=== PATIENT | male | born 1980 | race African-American/Black ===

== ENCOUNTER 2020-08-17 12:28 | Inpatient (IN) ==
[2020-08-17] MEDS ORDERED: SODIUM CHLORIDE 0.9% 1000ML 1,000 ML IV ONE (12:53)
[2020-08-17] MEDS ORDERED: ONDANSETRON INJ 2 MG/ML 2 ML VIAL IV STA (13:02)
--- NOTE | 2020-08-17 13:02 | Emergency Department Note ---
Impression & Plan BRBPR (bright red blood per rectum), Gastritis, Vomiting ED Provider Note NAME: MO [id number] MOMO AGE: 39 SEX: M : 1980 ARRIVES VIA: Walk-In INFORMANT: Patient ED PROVIDER(S): John Siddiqi DO CHIEF COMPLAINT: Bright red blood per rectum and vomiting HPI: Patient is a 39-year-old male who presents the ER for bright red blood per rectum. This has been present for the past 3 months. He notes its bright red blood out and around the stool. Its not mixed in. He denies any dark tarry or black stools. He denies any blood thinners. He has no belly pain with the exception of the past 2 to 3 days where he said pain in the right lower quadrant. He has had vomiting since this past Thursday. Anytime he eats or drinks anything he vomits it back up. He denies any blood in the vomit. Denies any dysuria urgency or frequency. No trauma. No other exacerbating or remitting factors. Denies any dizziness or lightheadedness. ROS: See above HPI for pertinent positives & negatives. A total of 10 systems reviewed and were otherwise negative. PAST MEDICAL HISTORY:See Below PAST SURGICAL HISTORY:See Below FAMILY HISTORY:See Below SOCIAL HISTORY:See Below HOME MEDICATIONS:See Below ALLERGIES:See Below VITALS:See Below PHYSICAL EXAMINATION: GENERAL: Sitting up in bed, alert, well appearing, well nourished, no distress, non-toxic EYE EXAM: normal conjunctiva. OROPHARYNX: Mask in place LUNGS: Clear to auscultation. Normal chest wall mechanics HEART: no murmurs, S1 normal and S2 normal ABDOMEN: abdomen soft, non-tender, normo-active bowel sounds, no masses, no rebound or guarding. RECTAL: Faintly heme positive. No stool. No external hemorrhoids UPPER EXTREMITIES: upper extremities are grossly normal. LOWER EXTREMITIES: No pitting edema. NEURO EXAM: Normal sensorium, cranial nerves II-XII grossly intact, normal speech, no gross weakness of arms, no gross weakness of legs. MEDICAL DECISION MAKING: Patient is a 39-year-old male who presents ER for bright red blood per rectum which has been present for the past 3 months. This does appear to be consistent with a hemorrhoidal bleed based on history. IV was established blood work was obtained. Labs show mild leukopenia 4000. No significant anemia. Platelets were normal. BMP with LFTs bilirubin and lipase was unremarkable. UA was clean. CT abdomen pelvis shows fluid-filled distal esophagus with a duodenitis. Did favor at the GI bleed is likely hemorrhoidal in nature and hemoglobin is stable. Vitals are stable. With the vomiting did have the images reviewed by Teresa from [facility] gastroenterology as the patient is scheduled with for colonoscopy as an outpatient already. They recommend discussed with Dr. Dougherty as they prefer if they were on this weekend they would scope him. Discussed with Dr. Dougherty and he will evaluate the patient tomorrow to determine further care. Triage Nursing notes reviewed. Limited review of prior medical records performed Vital Signs: reviewed and remarkable for HTN Differential diagnosis: Differential diagnoses includes but is not limited to gastritis, peptic ulcer disease, GERD, gallbladder disease, pancreatitis, small bowel obstruction, acute coronary syndrome, pericarditis, ischemic bowel, irritable bowel disease, irritable bowel syndrome, appendicitis, diverticulitis, malignancy, hernia, urinary tract infection, torsion, perforation, trauma, infectious. ER treatment provided: See below Diagnostics interpreted by me: ECG: none Cardiac Monitoring: An order was placed for continuous cardiac monitoring. The monitor shows a rate of 70 with sinus rhythm. Laboratory studies: As stated above and show below. Imaging studies: CT abdomen pelvis as discussed above Consultation(s): Discussed with Teresa from [facility] GI as stated above Discussed with Dr. Dougherty as stated above Discussed with the hospitalist as stated above Procedures: none PDMP:reviewed and no issues Critical Care: None Past Med/Surg History Social History Smoking Status: Never smoker Feels Safe at Home: Yes Allergies Allergies Allergy/AdvReac Type Severity Reaction Status Date / Time No Known Allergies Allergy Unknown Verified 08/17/20 13:48 chicken derived AdvReac Unknown NAUSEA Verified 08/17/20 13:48 Home Meds Home Medications Medication Instructions Recorded Confirmed insulin glargine [Lantus U-100 23 unit SUBCUT DAILY 08/17/20 08/17/20 Insulin] insulin regular human [Novolin R 0 unit SUBCUT UD 08/17/20 08/17/20 Regular U-100 Insuln] lisinopril 2.5 mg PO DAILY 08/17/20 08/17/20 metformin 1,000 mg PO BID 08/17/20 08/17/20 omeprazole 20 mg PO DAILY 08/17/20 08/17/20 Results & Data (ED) Vital Signs Vital Signs - 24 hr 08/17/20 12:41 08/17/20 13:12 08/17/20 13:22 Temperature 36.8 C Temperature Source Temporal Artery Scan Pulse Rate 62 57 L Pulse Rate [Apical] 73 Pulse Rhythm Regular Pulse Rhythm [Apical] Regular Pulse Strength [Apical] Normal Respiratory Rate 20 18 18 Respiratory Effort / Characteristics Non-Labored Spontaneous Non-Labored Spontaneous Respiratory Depth Normal Normal Respiratory Pattern Regular Blood Pressure 179/98 H Blood Pressure [Right Arm] 172/90 H Blood Pressure Mean 125 Blood Pressure Mean [Right Arm] 117 Blood Pressure Position Sitting Blood Pressure Position [Right Arm] Sitting Pulse Oximetry 97 98 99 Oxygen Delivery Method Room Air Room Air Room Air Sepsis Recent Fever Within 48 Hours No Sepsis New/Unexplained Change in Mental Status N/A Sepsis Action Taken by Nursing No Action Required 08/17/20 14:00 08/17/20 15:02 08/17/20 16:01 Temperature Temperature Source Pulse Rate Pulse Rate [Apical] 55 L 57 L 65 Pulse Rhythm Pulse Rhythm [Apical] Regular Regular Pulse Strength [Apical] Normal Normal Respiratory Rate 16 18 20 Respiratory Effort / Characteristics Non-Labored Spontaneous Non-Labored Spontaneous Respiratory Depth Normal Normal Respiratory Pattern Regular Regular Blood Pressure Blood Pressure [Right Arm] 135/87 143/86 H 174/103 H Blood Pressure Mean Blood Pressure Mean [Right Arm] 103 105 126 Blood Pressure Position Blood Pressure Position [Right Arm] Sitting Sitting Pulse Oximetry 98 96 99 Oxygen Delivery Method Room Air Room Air Sepsis Recent Fever Within 48 Hours Sepsis New/Unexplained Change in Mental Status Sepsis Action Taken by Nursing 08/17/20 17:07 Temperature Temperature Source Pulse Rate Pulse Rate [Apical] 66 Pulse Rhythm Pulse Rhythm [Apical] Pulse Strength [Apical] Respiratory Rate 18 Respiratory Effort / Characteristics Respiratory Depth Respiratory Pattern Blood Pressure Blood Pressure [Right Arm] 147/76 H Blood Pressure Mean Blood Pressure Mean [Right Arm] 99 Blood Pressure Position Blood Pressure Position [Right Arm] Pulse Oximetry 99 Oxygen Delivery Method Room Air Sepsis Recent Fever Within 48 Hours Sepsis New/Unexplained Change in Mental Status Sepsis Action Taken by Nursing Laboratory Data Result diagrams: 08/17/20 13:14 08/17/20 13:13 Lab Results 08/17/20 08/17/20 08/17/20 Range/Units 13:13 13:14 13:24 WBC 4.47 L (4.8-10.8) K/uL RBC 5.11 (4.7-6.1) M/uL Hgb 15.0 (14.0-18.0) g/dL Hct 43.1 (42-52) % MCV 84.3 (80-100) fL MCH 29.4 (25-34) pg MCHC 34.8 (32-36) g/dL RDW Std Deviation 40.3 (36.4-46.3) fL RDW Coeff of Jossy 13.1 (11.5-14.5) % Plt Count 332 (130-400) K/uL MPV 9.9 (7.4-10.4) fL Immature Gran % (Auto) 0.2 % Neut % (Auto) 34.5 % Lymph % (Auto) 57.0 % Keith % (Auto) 4.3 % Eos % (Auto) 3.1 % Baso % (Auto) 0.9 % Neut # (Auto) 1.54 (1.4-6.5) K/uL Lymph # (Auto) 2.55 (1.2-3.4) K/uL Keith # (Auto) 0.19 (0.11-0.59) K/uL Eos # (Auto) 0.14 (0-0.5) K/uL Baso # (Auto) 0.04 (0-0.2) K/uL Immature Gran # (Auto) 0.01 (0.00-0.02) K/uL Sodium 137 (136-145) mmol/L Potassium 3.8 (3.5-5.1) mmol/L Chloride 103 (98-107) mmol/L Carbon Dioxide 27 (21-32) mmol/L Anion Gap 7.0 (3-11) BUN 11 (7-18) mg/dl Creatinine 1.04 (0.6-1.4) mg/dl Est Cr Clr Drug Dosing 121.9 ml/min Est GFR ( Amer) 105.1 Est GFR (Non-Af Amer) 90.7 BUN/Creatinine Ratio 10.1 (10-20) Glucose 165 H (70-99) mg/dl Calcium 9.7 (8.5-10.1) mg/dl Total Bilirubin 0.7 (0.2-1) mg/dl AST 20 (15-37) U/L ALT 34 (12-78) U/L Alkaline Phosphatase 64 (45-117) U/L Total Protein 7.9 (6.4-8.2) gm/dl Albumin 4.2 (3.4-5.0) gm/dl Globulin 3.7 (2.5-4.0) gm/dl Albumin/Globulin Ratio 1.1 (0.9-2) Lipase 87 (73-393) U/L Urine Color Yellow Urine Appearance Clear (Clear) Urine pH 5.5 (4.5-7.5) Ur Specific [place] 1.037 H (1.000-1.030) Urine Protein 1+ H (Negative) Urine Glucose (UA) 3+ H (Negative) Urine Ketones Trace H (Negative) Urine Blood Negative (Negative) Urine Nitrite Negative (Negative) Urine Bilirubin Negative (Negative) Urine Urobilinogen Negative (Negative) Ur Leukocyte Esterase Negative (Negative) Urine WBC (Auto) 1-5 (0-5) /hpf Urine RBC (Auto) 0-4 (0-4) /hpf U Hyaline Cast (Auto) 1-5 (0-5) /lpf U Epithel Cells (Auto) 0-5 (0-5) /lpf Urine Bacteria (Auto) Negative (Negative) Administered Medications Discontinued Medications Al Hydrox/Mg Hydrox/Simethicone (Gi Cocktail Ed Use) 1 dose PO ONE ONE Stop: 08/17/20 16:32 Last Admin: 08/17/20 17:06 Dose: 1 dose Documented by: [id number] Sodium Chloride (Nss 1000ml) 1,000 mls @ 999 mls/hr IV .Q1H1M ONE Stop: 08/17/20 13:53 Last Infusion: 08/17/20 14:30 Dose: 0 mls/hr Documented by: [id number] Admin: 08/17/20 13:29 Dose: 999 mls/hr Documented by: [id number] Ioversol (Ioversol 100ml) 94 ml IV ONCE ONE Stop: 08/17/20 15:50 Last Admin: 08/17/20 15:49 Dose: 94 ml Documented by: [id number] Ondansetron HCl (Ondansetron Inj 2 Mg/Ml 2 Ml Vial) 4 mg IV NOW STA Stop: 08/17/20 13:03 Last Admin: 08/17/20 13:29 Dose: Not Given Documented by: [id number] Discharge Plan Visit Data Chief Complaint: GI Bleed Stated Complaint: GI BLEED ED Provider: John Siddiqi Discharge Problem: BRBPR (bright red blood per rectum), Gastritis, Vomiting Forms Stand Alone Forms: My [facility] Prescriptions Prescriptions: No Action Lantus U-100 Insulin 100 unit/mL Solution 23 unit SUBCUT DAILY RF: 0 metformin 1,000 mg Tablet 1,000 mg PO BID RF: 0 Novolin R Regular U-100 Insuln 100 unit/mL Solution 0 unit SUBCUT UD RF: 0 omeprazole 20 mg Capsule,Delayed Release(Dr/Ec) 20 mg PO DAILY RF: 0 lisinopril 2.5 mg Tablet 2.5 mg PO DAILY RF: 0 Discharge Problem: Gastritis Qualifiers: Gastritis type: unspecified gastritis Chronicity: unspecified Gastritis bleeding: presence of bleeding unspecified Qualified Code(s): K29.70 - Gastritis, unspecified, without bleeding Vomiting Qualifiers: Vomiting type: unspecified Vomiting Intractability: unspecified Nausea presence: unspecified Qualified Code(s): R11.10 - Vomiting, unspecified
[2020-08-17 13:37] LABS: Appearance Urine Clear (Clear); Bacteria Urine Automated Negative (Negative); Bilirubin Urine Negative (Negative); Blood Urine Negative (Negative); Color Urine Yellow; Epithelial Cell Urine Auto 0-5 /lpf (0-5); Glucose Urine UA 3+ (Negative); Ketones Urine Trace (Negative); Leukocyte Esterase Urine Negative (Negative); Nitrite Urine Negative (Negative); Protein Urine 1+ (Negative); RBC Urine Automated 0-4 /hpf (0-4); Specific Gravity Urine 1.037 (1.000-1.030); Urobilinogen Urine Negative (Negative); pH Urine 5.5 (4.5-7.5)
[2020-08-17 13:41] LABS: Albumin Level 4.2 gm/dl (3.4-5.0); BUN Creatinine Ratio 10.1 (10-20); Calcium 9.7 mg/dl (8.5-10.1); Creatinine Clr Calc Pharmacy 121.9 ml/min; Est GFR (African American) 105.1; Est GFR (Non-African American) 90.7; Potassium 3.8 mmol/L (3.5-5.1)
[2020-08-17 13:43] LABS: Albumin Globulin Ratio 1.1 (0.9-2); Bilirubin,Total 0.7 mg/dl (0.2-1); Globulin 3.7 gm/dl (2.5-4.0); Total Protein 7.9 gm/dl (6.4-8.2)
[2020-08-17 14:15] LABS: Hematocrit (blood only) 43.1 % (42-52); Mean Corpuscular Hemoglobin 29.4 pg (25-34); Mean Corpuscular Hgb Conc 34.8 g/dL (32-36); Mean Corpuscular Volume 84.3 fL (80-100); Mean Platelet Volume 9.9 fL (7.4-10.4); Platelet Count 332 K/uL (130-400); RDW Coefficient of Variation 13.1 % (11.5-14.5); RDW Standard Deviation 40.3 fL (36.4-46.3); Red Blood Count 5.11 M/uL (4.7-6.1); White Blood Count 4.47 K/uL (4.8-10.8)
[2020-08-17 14:31] LABS: Basophils # (auto) 0.04 K/uL (0-0.2); Basophils % (auto) 0.9 %; Eosinophils # (auto) 0.14 K/uL (0-0.5); Eosinophils % (auto) 3.1 %; Immature Granulocytes # (auto) 0.01 K/uL (0.00-0.02); Immature Granulocytes % (auto) 0.2 %; Lymphocytes # (auto) 2.55 K/uL (1.2-3.4); Monocytes # (auto) 0.19 K/uL (0.11-0.59); Monocytes % (auto) 4.3 %; Neutrophils # (auto) 1.54 K/uL (1.4-6.5); Neutrophils % (auto) 34.5 %
[2020-08-17] MEDS ORDERED: IOVERSOL 100ml IV ONE (15:49)
--- NOTE | 2020-08-17 16:06 | CT Scan Report ---
CT SCAN OF THE ABDOMEN AND PELVIS WITH IV CONTRAST CLINICAL HISTORY: Generalized abdominal pain. Nausea and vomiting. Hematochezia. COMPARISON STUDY: No priors. TECHNIQUE: Following the IV administration of 94 cc of Optiray 320, CT scan of the abdomen and pelvi s is performed from the lung bases to the proximal femora. Images are reviewed in the axial, sagittal , and coronal planes. IV contrast was administered without complication. A dose lowering technique wa s utilized adhering to the principles of ALARA. The examination is modestly degraded by motion artifa ct. CT DOSE: 1031.97 mGycm FINDINGS: Lung bases: The heart is normal in size and without pericardial effusion. The lung bases are clear. T here is a small hiatal hernia. Fluid fills the distal esophagus which appears thick walled. Liver: The contrast-enhanced liver is normal in size, contour, and attenuation. There is no intrahepa tic biliary ductal dilatation. The hepatic veins and portal veins are patent. Gallbladder: Unremarkable. Spleen: Normal in size and attenuation. A 10 mm splenic hypodensity seen on image #50 is statisticall y of doubtful significance. Pancreas: Unremarkable. Adrenal glands: Unremarkable. Kidneys: The contrast enhanced kidneys are normal in size and without hydronephrosis. The kidneys enh ance symmetrically. Scattered subcentimeter cortical hypodensities likely represent cysts but are too small for definitive characterization. Abdominal vasculature: The abdominal aorta is normal in course and caliber. Bowel: There is no bowel obstruction. There is wall thickening and mild mucosal hyperemia involving t he distal duodenum and the jejunum. There is minimal surrounding infiltration. No pneumatosis intesti nalis or portal venous gas is seen. There is no interval fluid. Fecal retention is seen throughout th e colon. The appendix is well-visualized and normal. Peritoneum: There is no intraperitoneal free air or abdominal ascites. There is a fat-containing umbi lical hernia. Lymphadenopathy: None. Pelvic viscera: The bladder, prostate, and seminal vesicles are normal as imaged. There is a small fa t-containing right inguinal hernia. Skeletal structures: No lytic or blastic lesions are seen. Degenerative change and sclerosis is noted in the sacroiliac joints. IMPRESSION: 1. There is mild wall thickening with mucosal hyperemia and minimal surrounding infiltration involvin g the distal duodenum and the jejunum. The appearance is consistent with a nonspecific duodenitis/jej unitis. 2. There is no pneumatosis intestinalis, portal venous gas, intraperitoneal free air, or abdominal as cites. 3. The distal esophagus is mildly distended and fluid-filled. There is mild esophageal wall thickenin g. Correlate clinically for evidence of esophagitis. 4. There is no bowel obstruction. 5. Additional findings as above. ACT 112: Negative or not required by law. Electronically signed by: Ruy Russell M.D. 08/17/2020 4:05 PM
[2020-08-17] MEDS ORDERED: GI COCKTAIL ED USE PO ONE (16:31)
[2020-08-17] MEDS ORDERED: PANTOprazole 40 MG in SYRINGE 0 ML IV ONE (17:16)
--- NOTE | 2020-08-17 17:58 | History & Physical Report ---
Date of Service August 17, 2020 Assessment & Plan (1) Vomiting: (2) Rectal bleeding: Pt is 39 y/o M with PMH DM, HTN presented to ER with c/o bright red rectal bleeding with BMs x 3 months. Past week c/o nausea and vomiting with eating. In ER afebrile, vitals stable No leukocytosis, H/H: 15/43, BUN: 11, Cr: 1.0 CT ABD/PELVIS:There is mild wall thickening with mucosal hyperemia and minimal surrounding infiltration involving the distal duodenum and the jejunum. The appearance is consistent with a nonspecific duodenitis/jejunitis. no pneumatosis intestinalis, portal venous gas, intraperitoneal free air, or abdominal ascites. The distal esophagus is mildly distended and fluid-filled. There is mild esophageal wall thickening. There is no bowel obstruction. In ER given 1L NSS, GI cocktail, Zofran, Protonix and reports improvement NPO IVF Protonix IV BID GI consult AM labs (3) Diabetes mellitus, type II: A1c in am Hold metformin, home insulin Basal bolus insulin per protocol (4) HTN (hypertension): Hold lisinopril and reassess in am DVT Prophylaxis SCDs Pt at [facility] Pt was seen and care coordinated with Dr Caldera. See addendum History of Present Illness Chief Complaint: Rectal bleeding Primary Care Provider: [facility] Pt is 39 y/o M with PMH DM, HTN presented to ER with c/o bright red rectal bleeding with BMs x 3 months. Past week c/o nausea and vomiting with eating. Didn't eat yesterday as was afraid would vomit. C/O upper and lower abdominal pressure today. Denies constipation, straining to have BM or painful BM's. Today felt light headed with standing. Denies fever/chills, diaphoresis, hematemesis, melena, ABDI, syncope, vision changes, neck pain, CP, SOB, orthopnea, palpitations, cough, sore throat, choking, otalgia, rhinorrhea, paresthesias, weakness, extremity weakness, extremity edema, rashes, urinary symptoms. Allergies Allergy/AdvReac Type Severity Reaction Status Date / Time No Known Allergies Allergy Unknown Verified 08/17/20 13:48 chicken derived AdvReac Unknown NAUSEA Verified 08/17/20 13:48 Home Medications Medication Instructions Recorded Confirmed Type insulin glargine [Lantus U-100 23 unit SUBCUT DAILY 08/17/20 08/17/20 History Insulin] insulin regular human [Novolin R 0 unit SUBCUT UD 08/17/20 08/17/20 History Regular U-100 Insuln] lisinopril 2.5 mg PO DAILY 08/17/20 08/17/20 History metformin 1,000 mg PO BID 08/17/20 08/17/20 History omeprazole 20 mg PO DAILY 08/17/20 08/17/20 History Past Med/Surg History Medical History Diabetes mellitus, type II HTN (hypertension) Surgical History H/O right knee surgery Family History Family/Other Colorectal cancer Aunt Grandfather (Maternal) Diabetes Mother Diabetes Social History Smoking Status: Never smoker Hx Alcohol Use: No Hx Substance Use: No Feels Safe at Home: Yes Review of Systems Review of Systems: All systems reviewed & are unremarkable except as noted in HPI & below Physical Exam Physical Exam: General: no distress, WDWN Head: normocephalic, atraumatic Eyes: PERRL, EOM's intact, conjunctiva non-injected, anicteric ENT: normal inspection external ears, nose, mucous membranes moist Neck: supple, trachea midline Lungs: clear, no respiratory distress, no wheezing/rhonchi/rales CV: RRR, no murmur, no pretibial edema Abd: normal BS, soft, mild tenderness to palpation epigastric without rebound or guarding Ext: no cyanosis, no calf tenderness Neuro: A&O x 3, no focal deficits noted, normal affect Skin: warm, dry Results & Data Results & Data ([place]) Vital Signs (Past 12 Hours) Vital Signs Temp Pulse Pulse Resp BP BP Pulse Ox 08/17/20 17:07 66 18 147/76 H 99 08/17/20 16:01 65 20 174/103 H 99 08/17/20 15:02 57 L 18 143/86 H 96 08/17/20 14:00 55 L 16 135/87 98 08/17/20 13:22 73 18 172/90 H 99 08/17/20 13:12 57 L 18 98 08/17/20 12:41 36.8 C 62 20 179/98 H 97 Laboratory Results Short CBC 08/17/20 Range/Units 13:14 WBC 4.47 L (4.8-10.8) K/uL Hgb 15.0 (14.0-18.0) g/dL Hct 43.1 (42-52) % Plt Count 332 (130-400) K/uL BMP 08/17/20 13:13 Sodium 137 Potassium 3.8 Chloride 103 Carbon Dioxide 27 BUN 11 Creatinine 1.04 Glucose 165 H Calcium 9.7 Liver Function 08/17/20 Range/Units 13:13 Total Bilirubin 0.7 (0.2-1) mg/dl AST 20 (15-37) U/L ALT 34 (12-78) U/L Alkaline Phosphatase 64 (45-117) U/L Albumin 4.2 (3.4-5.0) gm/dl Urine 08/17/20 Range/Units 13:24 Urine Color Yellow Urine Appearance Clear (Clear) Urine pH 5.5 (4.5-7.5) Ur Specific [place] 1.037 H (1.000-1.030) Urine Protein 1+ H (Negative) Urine Glucose (UA) 3+ H (Negative) Diagnostic Findings CT ABD/PELVIS: IMPRESSION: 1. There is mild wall thickening with mucosal hyperemia and minimal surrounding infiltration involving the distal duodenum and the jejunum. The appearance is consistent with a nonspecific duodenitis/jejunitis. 2. There is no pneumatosis intestinalis, portal venous gas, intraperitoneal free air, or abdominal ascites. 3. The distal esophagus is mildly distended and fluid-filled. There is mild esophageal wall thickening. Correlate clinically for evidence of esophagitis. 4. There is no bowel obstruction. 5. Additional findings as above. Code Status & VTE Plan VTE Prophylaxis Plan VTE Prophylaxis will be ordered: Yes Supervising Physician Co-Signing Physician Notes Attending Addendum: care coordinated with INGRID Moser please refer to her notes for full details, I agree with her notes patient seen and examined, records reviewed by myself as well on exam, patient seen resting in bed, comfortable not in distress states he has mild lower quadrant pain, improving reports nausea/vomiting with PO intake x 2 days reports rectal bleeding, non painful, x few weeks no other symptoms VS noted and reviewed oriented x 3, not in distress, speaks in sentences with no effort nor accessory muscle use normal rate, regular rhythm, no murmurs clear breath sounds bilaterally non distended, soft, mild lower quadrant tenderness no bipedal edema, erythema, warmth no neuro deficits WBC 4.4 Hg 15 Crea 1.04 ASSESSMENT AND PLAN ABDOMINAL PAIN, NAUSEA/VOMITING LIKELY SECONDARY TO ESOPHAGITIS, DUODENO/JEJUNITIS Protonix IV BID NPO IV fluids GI consulted DM 2 ISS other diagnoses and plan of care as per INGRID Davis notes Deep Caldera MD (1) Vomiting Nausea presence: unspecified Vomiting Intractability: unspecified Vomiting type: unspecified Qualified Code(s): R11.10 - Vomiting, unspecified
[2020-08-17] MEDS ORDERED: CARBOHYDRATES FOR HYPOGLYCEMIA PO PRN (21:29)
[2020-08-17] MEDS ORDERED: DEXTROSE 50% 50 ML SYRINGE IV PRN (21:29)
[2020-08-17] MEDS ORDERED: GLUCAGON FOR INJ 1 MG VIAL SQ PRN (21:29)
[2020-08-17] MEDS ORDERED: GLUCOSE 40% GEL 15 GM TUBE PO PRN (21:29)
[2020-08-17] MEDS ORDERED: GLUCOSE 10 TABS/TUBE PO PRN (21:29)
[2020-08-17] MEDS: SODIUM CHLORIDE 0.9% 1000ML 1,000 ML IV SCH (21:30)
[2020-08-17] MEDS: INSULIN GLARGINE SOLOSTAR 100 UNITS/ML 3 ML PEN SC SCH (21:30)
[2020-08-17] MEDS: INSULIN ASPART 100 UNITS/ML 3 ML PEN SC SCH (22:41)
[2020-08-17] MEDS: PANTOprazole 40 MG in SYRINGE 0 ML IV SCH (23:12)
[2020-08-17] MEDS: ONDANSETRON INJ 2 MG/ML 2 ML VIAL IV PRN (23:46)
[2020-08-17] MEDS ORDERED: traMADol HCL 50 MG TABLET PO PRN (23:48)
[2020-08-17] MEDS ORDERED: ACETAMINOPHEN 325 MG TAB PO PRN (23:48)
[2020-08-18] MEDS ORDERED: NITROGLYCERIN SL 0.4 MG/TAB TAB SL STA (00:11)
--- NOTE | 2020-08-18 00:15 | Communication Note ---
Date of Service: August 18, 2020 Notified by RN of left-sided chest pain complaints described as sharp. No other symptoms. Similar episode last month in long term as per patient. Chest pain relieved by nitroglycerin as per RN. PPE CHEST CTA, no anterior chest wall tenderness HEART bradycardic, no obvious murmur Chest x-ray as per my interpretation cardiomegaly EKG as per my interpretation : Rate 55, sinus bradycardia, normal axis, T wave abnormalities inferior leads, early repolarization anterolateral leads First troponin negative AP Chest pain relieved by nitroglycerin Abnormal EKG Possible ACS Aspirin per rectum for now (given UGIB) for CAD prevention until ACS ruled out Follow troponin TTE in a.m., Cardio consult Case discussed with Dr. Mims (owner/operator) after EKG images transmitted. No heart alert for now as per Dr. Mims. He recommends follow-up troponin draw now. Will relay to AM provider.
[2020-08-18 00:31] LABS: Partial Thromboplastin Ratio 1.1; Partial Thromboplastin Time 30.1 Seconds (21.0-31.0)
[2020-08-18 00:37] LABS: C Reactive Protein < 0.29 mg/dl (0-0.29); Troponin I < 0.015 ng/ml (0-0.045)
[2020-08-18] MEDS ORDERED: ASPIRIN 300 MG SUPP PR ONE (00:49)
[2020-08-18 05:10] LABS: Hematocrit (blood only) 39.4 % (42-52); Hemoglobin 13.6 g/dL (14.0-18.0); Mean Corpuscular Hemoglobin 29.3 pg (25-34); Mean Corpuscular Hgb Conc 34.5 g/dL (32-36); Mean Corpuscular Volume 84.9 fL (80-100); Mean Platelet Volume 9.7 fL (7.4-10.4); Platelet Count 314 K/uL (130-400); RDW Coefficient of Variation 13.1 % (11.5-14.5); RDW Standard Deviation 40.4 fL (36.4-46.3); Red Blood Count 4.64 M/uL (4.7-6.1); White Blood Count 4.65 K/uL (4.8-10.8)
[2020-08-18 05:38] LABS: Basophils # (auto) 0.03 K/uL (0-0.2); Basophils % (auto) 0.6 %; Eosinophils # (auto) 0.23 K/uL (0-0.5); Eosinophils % (auto) 4.9 %; Lymphocytes # (auto) 2.73 K/uL (1.2-3.4); Lymphocytes % (auto) 58.7 %; Monocytes # (auto) 0.27 K/uL (0.11-0.59); Monocytes % (auto) 5.8 %; Neutrophils # (auto) 1.39 K/uL (1.4-6.5); RBC Morphology Unremarkable
[2020-08-18 05:44] LABS: BUN Creatinine Ratio 10.3 (10-20); Blood Urea Nitrogen 10 mg/dl (7-18); Calcium 8.8 mg/dl (8.5-10.1); Carbon Dioxide 30 mmol/L (21-32); Chloride 109 mmol/L (98-107); Creatinine Clr Calc Pharmacy 129.4 ml/min; Est GFR (African American) 112.9; Est GFR (Non-African American) 97.4; Glucose 111 mg/dl (70-99); Potassium 3.7 mmol/L (3.5-5.1); Sodium 141 mmol/L (136-145)
[2020-08-18] MEDS ORDERED: MoRPHine SULFATE 4 MG/ML 1 ML CARP\\VIAL IV PRN (05:48)
[2020-08-18 05:55] LABS: Chol HDL Ratio 5; Cholesterol 192 mg/dl (0-200); HDL Cholesterol 38 mg/dl; LDL Cholesterol Calculated 139 mg/dl; Triglycerides 73 mg/dl (0-150); Troponin I < 0.015 ng/ml (0-0.045); VLDL Cholesterol 15 mg/dl
[2020-08-18] MEDS: INSULIN ASPART 100 UNITS/ML 3 ML PEN SC SCH ×3 (06:34→17:39)
[2020-08-18] MEDS: SODIUM CHLORIDE 0.9% 1000ML 1,000 ML IV SCH (07:33)
--- NOTE | 2020-08-18 08:07 | XRay Report ---
XR chest 1V portable CLINICAL HISTORY: Atypical chest pain COMPARISON STUDY: 08/31/2008 FINDINGS: The heart is the upper limits of normal in size. There is no failure. There is no focal pul monary consolidation. There are no pleural effusions. There is no pneumothorax.[ IMPRESSION: No active disease in the chest. ACT 112: Negative or not required by law. Electronically signed by: Vignesh Hillman M.D. 08/18/2020 8:05 AM
[2020-08-18] MEDS: INSULIN GLARGINE SOLOSTAR 100 UNITS/ML 3 ML PEN SC SCH ×2 (08:13→21:17)
[2020-08-18 08:28] LABS: Estimated Average Glucose 214 mg/dl; Hemoglobin A1C 9.1 % (4.5-5.6)
[2020-08-18] MEDS: PANTOprazole 40 MG in SYRINGE 0 ML IV SCH ×2 (08:35→22:00)
[2020-08-18] MEDS ORDERED: lisinopril 2.5 MG TAB PO SCH (09:00)
[2020-08-18] MEDS ORDERED: ALUMINUM/MAGNESIUM SUSP 18 ML, LIDOCAINE HCL VISCOUS 2% 6 ML, BARCODE IDENTIFIER 1 EA PO ONE (09:25)
--- NOTE | 2020-08-18 12:01 | Gastrointestinal Consultation ---
Date of Consultation August 18, 2020 Assessment & Plan (1) Chest pain: (2) Vomiting: (3) Rectal bleeding: Continue Protonix 40 mg IV twice daily Continue Carafate 1 g by mouth four times daily before meals and at bedtime. If Echocardiogram is normal, recommend advancing diet as tolerated Consider EGD/Colonoscopy on 08/20/2020 if patient remains in hospital, otherwise, recommend EGD/Colonoscopy as outpatient within the next few weeks with [facility]. Continue supportive care Please do not hesitate to contact me with any further questions or concerns. History of Present Illness Reason for Consultation: Rectal bleeding, Nausea and vomiting Attending Physician: Deep Caldera MD History of Present Illness Bakari Benitez is a 39 yo AAM who presented to the ER last night from [facility] secondary to rectal bleeding, nausea and vomiting. He reports that he has an upcoming outpatient colonoscopy with [facility], as he has had rectal bleeding for the past 3 months. He stated in the ER that over the past week he developed nausea and vomiting, without hematemesis. His H/H in the ER was 15/43.1. He did undergo a CT scan of the abd/pelvis in the ER, and was noted to have a mild duodenitis and jejunitis, with a dilated distal esophagus that was fluid filled, but no other findings. He was subsequently admitted and placed on Protonix 40 mg IV BID and Carafate 1g PO QID. Early this AM, he developed chest pain, which was relieved by Nitro. He had negative troponin x3, EKG was reviewed by Dr. Mims of cardiology and he had a Transthoracic Echo this AM. At the time I saw the patient, he was feeling better. He states that the chest pain comes and goes. He rates it as 3-4/10 in intensity, non-radiating, without exacerbating factors. He denies any abdominal pain, nausea, vomiting, fevers, chills, SOB, jaundice, acholic stools, dark urine, pruritus, hematemesis, melena or hematochezia. In fact, he states he has not had a BM today, and has not had any vomiting since receiving Zofran in the ER. He states that his brother has had colon cancer in the past. He has no further complaints. Allergies Allergy/AdvReac Type Severity Reaction Status Date / Time No Known Allergies Allergy Unknown Verified 08/17/20 13:48 chicken derived AdvReac Unknown NAUSEA Verified 08/17/20 13:48 Home Medications Medication Instructions Recorded Confirmed Type insulin glargine [Lantus U-100 23 unit SUBCUT DAILY 08/17/20 08/17/20 History Insulin] insulin regular human [Novolin R 0 unit SUBCUT UD 08/17/20 08/17/20 History Regular U-100 Insuln] lisinopril 2.5 mg PO DAILY 08/17/20 08/17/20 History metformin 1,000 mg PO BID 08/17/20 08/17/20 History omeprazole 20 mg PO DAILY 08/17/20 08/17/20 History Patient History Medical History Diabetes mellitus, type II HTN (hypertension) Surgical History H/O right knee surgery Family History Family/Other Colorectal cancer Aunt Grandfather (Maternal) Diabetes Mother Diabetes Social History Smoking Status: Former smoker Hx Alcohol Use: No Hx Substance Use: No Preferred Language: French Communication Ability: Effective Purchasing And Fiscal Clerk Required: No Beliefs That Will Affect Care: None Current Living Situation: Other Current Living Situation Comment: [facility] Feels Safe at Home: Yes Safety Concerns: Feels Safe At This Time Assistive Devices: Glasses Review of Systems Review of Systems: All systems reviewed & are unremarkable except as noted in HPI & below Physical Exam Constitutional: well developed; no acute distress Eyes: + anicteric sclerae ENMT: external ear and nose normal, oropharynx normal Neck: trachea midline, no thyromegaly Respiratory: normal respiratory effort, lungs clear to auscultation Cardiovascular: Rate/Rhythm: + bradycardic Gastrointestinal (Abdomen): normal bowel sounds, soft, nontender, no hepatosplenomegaly Skin: no rashes, warm and dry Psychiatric: A+Ox3, euthymic affect Results & Data ([facility]) Vital Signs (Past 12 Hours) Vital Signs Temp Pulse Pulse Pulse Resp BP Pulse Ox 08/18/20 07:34 36.6 C 51 L 18 91/52 L 95 01/30/21 03:49 36.5 C 47 L 16 108/60 95 08/18/20 02:26 52 L 08/18/20 00:20 132/87 PG Care Time/CCT Total # of Minutes Spent Total Time Spent with Patient: Total time spent is greater than 50% in coordination of care (as documented) at patient's floor/unit and/or counseling patient: Coding Level of Care Code 68413 Initial Inpt Care Lvl 3 Diagnoses Chest pain R07.9 Vomiting R11.10 Nausea presence: unspecified Vomiting Intractability: unspecified Vomiting type: unspecified Rectal bleeding K62.5 (1) Vomiting Nausea presence: unspecified Vomiting Intractability: unspecified Vomiting type: unspecified Qualified Code(s): R11.10 - Vomiting, unspecified
--- NOTE | 2020-08-18 12:02 | XCELERA ---
[id number] [id number]
--- NOTE | 2020-08-18 12:13 | Cardiology Consultation ---
Date of Consultation August 18, 2020 Assessment & Plan (1) Chest pain: -history suggest noncardiac chest pain. -4 undetectable troponin levels. -no acute EKG changes. -normal echocardiogram. -no further cardiac evaluation necessary. (2) HTN (hypertension): -adequate control on lisinopril. (3) Hypercholesterolemia: -LDL cholesterol elevated at 139. -HDL low at 38. History of Present Illness Attending Physician: Deep Caldera MD History of Present Illness Mr. Benitez is a 39-year-old male admitted yesterday because bright red blood per rectum x3 months. The patient developed chest pain syndrome early this morning and therefore, this consultation was ordered. The patient was in his usual state of health until approximately 3 months ago. He began to note nausea and occasional vomiting with most meals. He also notice bright red blood per rectum over that same time frame. The patient was scheduled undergo a colonoscopy in the near future, however, presented to the emergency room with above complaints. Early this morning, while asleep, the patient awoke with a sharp left-sided chest discomfort in the parasternal region. There were no other associated symptoms such as shortness of breath, nausea, vomiting, diaphoresis, or ra diation of the discomfort. The patient explains that his symptoms resolved spontaneously after approximately 25 minutes. He did note that his discomfort was worse when lying supine on his back. His discomfort improved if he assumed the right or left lateral decubitus position. The patient has never known of a cardiac event. He has never experienced exertional angina pectoris or limiting dyspnea. He further denies syncope, presyncope, PND, orthopnea, palpitations, lower extremity edema, and claudication. Currently, patient is resting comfortably in bed without complaints. Past medical and surgical history 1. Hypertension 2. Diabetes mellitus 3. GERD 4. History of right knee surgery Social history Inmate at [facility] No tobacco alcohol Family history Mother at 60 of a carcinoma Father's history is unknown Review of systems A 10 point review systems was undertaken and negative except for that described above. Allergies Allergy/AdvReac Type Severity Reaction Status Date / Time No Known Allergies Allergy Unknown Verified 08/17/20 13:48 chicken derived AdvReac Unknown NAUSEA Verified 08/17/20 13:48 Home Medications Medication Instructions Recorded Confirmed Type insulin glargine [Lantus U-100 23 unit SUBCUT DAILY 08/17/20 08/17/20 History Insulin] insulin regular human [Novolin R 0 unit SUBCUT UD 08/17/20 08/17/20 History Regular U-100 Insuln] lisinopril 2.5 mg PO DAILY 08/17/20 08/17/20 History metformin 1,000 mg PO BID 08/17/20 08/17/20 History omeprazole 20 mg PO DAILY 08/17/20 08/17/20 History Patient History Medical History (Updated 08/18/20 @ 12:09 by Matthew Suárez MD) Chest pain Diabetes mellitus, type II HTN (hypertension) Surgical History H/O right knee surgery Family History Family/Other Colorectal cancer Aunt Grandfather (Maternal) Diabetes Mother Diabetes Social History Smoking Status: Former smoker Hx Alcohol Use: No Hx Substance Use: No Preferred Language: Welsh Communication Ability: Effective Sports Therapist Required: No Beliefs That Will Affect Care: None Current Living Situation: Other Current Living Situation Comment: [facility] Feels Safe at Home: Yes Safety Concerns: Feels Safe At This Time Assistive Devices: Glasses Physical Exam Physical Exam: In general this is a well-developed well-nourished black male in no acute distress. HEENT exam is negative. Neck is supple with full carotid upstrokes. There are no carotid bruits. Jugular venous pressure is flat at 90. There is no thyromegaly. Cardiovascular exam reveals a regular rhythm wi th a normal S1 and S2. No S3, S4, or murmurs are noted. Lungs are clear without rales, rhonchi, or wheezes. Abdomen is soft and nontender without bruits. Extremities reveal intact radial artery and posterior tibial pulses bilaterally. There is no peripheral edema. Results & Data ([facility]) Vital Signs (Past 12 Hours) Vital Signs Temp Pulse Pulse Pulse Resp BP Pulse Ox 08/18/20 07:34 36.6 C 51 L 18 91/52 L 95 08/18/20 03:49 36.5 C 47 L 16 108/60 95 08/18/20 02:26 52 L 08/18/20 00:20 132/87 Laboratory Results CBC notes hemoglobin of 15.0, hematocrit 43.1, white count 4.47, platelet count [id number]. Electrolytes noticed sodium 137, potassium 3.8, chloride 103, bicarb 27, BUN 11, creatinine 1.04, and glucose 165. Four separate troponin I levels are undetectable less than 0.015. LDL cholesterol is 139 with a HDL of 38. Diagnostic Findings Both EKGs note normal sinus rhythm with early repolarization changes. Echocardiogram notes normal left ventricular systolic function without wall motion abnormalities. There is no significant valvular pathology. Chest x-ray shows no acute disease. PG Care Time/CCT Total # of Minutes Spent Total Time Spent with Patient: Total time spent is greater than 50% in coordination of care (as documented) at patient's floor/unit and/or counseling patient: Coding Level of Care Code 07345 Office/OBS Consult Lvl 4 Diagnoses Chest pain R07.9 HTN (hypertension) I10 Hypercholesterolemia E78.00
[2020-08-18] MEDS: SUCRALFATE 1 GM/10 ML UDC PO SCH ×3 (13:01→22:00)
--- NOTE | 2020-08-18 13:19 | Electrocardiogram Report ---
Test Reason : Blood Pressure : / mmHG Vent. Rate : 052 BPM Atrial Rate : 052 BPM P-R Int : 194 ms QRS Dur : 100 ms QT Int : 434 ms P-R-T Axes : -21 033 -05 degrees QTc Int : [address] elevation, consider early repolarization, pericarditis, or injury Abnormal ECG When compared with ECG of 17-AUG-2020 23:35, (unconfirmed) No significant change was found Confirmed by Matthew Suárez ([id number]) on 08/18/2020 1:19:20 PM Referred By: [facility] Confirmed By:aMtthew Suárez
--- NOTE | 2020-08-18 13:19 | Electrocardiogram Report ---
Test Reason : Blood Pressure : / mmHG Vent. Rate : 053 BPM Atrial Rate : 053 BPM P-R Int : 188 ms QRS Dur : 100 ms QT Int : 420 ms P-R-T Axes : -24 047 -04 degrees QTc Int : [address] elevation, consider early repolarization, pericarditis, or injury Abnormal ECG No previous ECGs available Confirmed by Matthew Suárez ([id number]) on 08/18/2020 1:18:33 PM Referred By: [facility] Confirmed By:Matthew Suárez
--- NOTE | 2020-08-18 17:57 | Hospitalist Progress Note ---
Date of Service August 18, 2020 Assessment & Plan (1) Vomiting: (2) Rectal bleeding: per INGRID Levy S: Pt is 39 y/o M with PMH DM, HTN presented to ER with c/o bright red rectal bleeding with BMs x 3 months. Past week c/o nausea and vomiting with eating. In ER afebrile, vitals stable No leukocytosis, H/H: 15/43, BUN: 11, Cr: 1.0 CT ABD/PELVIS:There is mild wall thickening with mucosal hyperemia and minimal surrounding infiltration involving the distal duodenum and the jejunum. The appearance is consistent with a nonspecific duodenitis/jejunitis. no pneumatosis intestinalis, portal venous gas, intraperitoneal free air, or abdominal ascites. The distal esophagus is mildly distended and fluid-filled. There is mild esophageal wall thickening. There is no bowel obstruction. In ER given 1L NSS, GI cocktail, Zofran, Protonix and reports improvement GI consulted recommend EGD & Colonoscopy on Thursday continue Protonix IV BID, Sucralfate QID clear liquids for now Atypical Chest Pain likely from Esophagitis Troponin levels x 3 negative Echo: no signs of ischemia Lye Boiler consulted, no further cardiac testing (3) Diabetes mellitus, type II: A1c 9.1 Hold metformin, home insulin Basal bolus insulin per protocol (4) HTN (hypertension): Hold lisinopril for marginal BP DVT Prophylaxis SCDs Pt at [facility] Admission and Anticipated Discharge Date Admission Date: August 17, 2020 Subjective ff up for abdominal pain, esophagitis, duodeno-jejunitis, etc seen resting in bed, comfortable had chest pain overnight, resolved with Nitro SL on exam, chest pain- sharp, is 3/10 no nausea/vomiting mild abdominal discomfort no rectal bleeding no BMs yet denies headache, dyspnea, palpitations, dizziness no other symptoms Review of Systems Review of Systems: All systems reviewed & are unremarkable except as noted in Subjective Physical Exam Physical Exam: General- oriented x 3, not in distress, speaks in sentences with no effort or accessory muscle use Eyes- anicteric Neck- no JVD Lungs- clear breath sounds bilaterally, no rales/wheezes Heart- normal rate, regular rhythm; no murmurs Abdomen- normal bowel sounds, nondistended, soft, nontender Extremities- no pretibial edema, no calf tenderness Neuro- alert, oriented x 3; no gross focal neurologic deficits Skin- warm & dry Results & Data Results & Data ([facility]) Vital Signs (Past 12 Hours) Vital Signs Temp Pulse Pulse Resp BP Pulse Ox 08/18/20 16:01 52 L 08/18/20 15:56 36.8 C 56 L 18 111/64 95 08/18/20 11:15 36.9 C 53 L 16 107/71 94 08/18/20 07:34 36.6 C 51 L 18 91/52 L 95 (1) Vomiting Nausea presence: unspecified Vomiting Intractability: unspecified Vomiting type: unspecified Qualified Code(s): R11.10 - Vomiting, unspecified
[2020-08-18] MEDS ORDERED: Nursing to Pharmacy Communication SCH (22:45)
[2020-08-19] MEDS: ONDANSETRON INJ 2 MG/ML 2 ML VIAL IV PRN (05:05)
[2020-08-19] MEDS: PANTOprazole 40 MG in SYRINGE 0 ML IV SCH ×2 (07:46→21:06)
[2020-08-19] MEDS: SUCRALFATE 1 GM/10 ML UDC PO SCH ×4 (07:47→21:06)
[2020-08-19] MEDS: INSULIN ASPART 100 UNITS/ML 3 ML PEN SC SCH ×4 (08:02→21:18)
[2020-08-19] MEDS: INSULIN GLARGINE SOLOSTAR 100 UNITS/ML 3 ML PEN SC SCH ×2 (08:03→20:33)
[2020-08-19 09:42] LABS: Basophils # (auto) 0.02 K/uL (0-0.2); Basophils % (auto) 0.5 %; Eosinophils # (auto) 0.18 K/uL (0-0.5); Eosinophils % (auto) 4.2 %; Hematocrit (blood only) 40.5 % (42-52); Hemoglobin 13.9 g/dL (14.0-18.0); Lymphocytes # (auto) 1.91 K/uL (1.2-3.4); Lymphocytes % (auto) 44.6 %; Mean Corpuscular Hemoglobin 29.1 pg (25-34); Mean Corpuscular Hgb Conc 34.3 g/dL (32-36); Mean Corpuscular Volume 84.9 fL (80-100); Mean Platelet Volume 9.9 fL (7.4-10.4); Monocytes # (auto) 0.27 K/uL (0.11-0.59); Monocytes % (auto) 6.3 %; Neutrophils % (auto) 44.4 %; Platelet Count 327 K/uL (130-400); RDW Standard Deviation 40.8 fL (36.4-46.3); Red Blood Count 4.77 M/uL (4.7-6.1); White Blood Count 4.28 K/uL (4.8-10.8)
--- NOTE | 2020-08-19 09:46 | Gastroenterology Progress Note ---
Date of Service August 19, 2020 Assessment & Plan (1) Rectal bleeding: (2) Nausea: Continue current therapy Bowel prep tonight, then NPO Plan for EGD and Colonoscopy in AM with Dr. Em of [facility] Admission and Anticipated Discharge Date Admission Date: August 17, 2020 Subjective Only complaint was of some slight nausea overnight. No overt GI bleeding. Tolerating clear liquids. No further complaints. Review of Systems Review of Systems: All systems reviewed & are unremarkable except as noted in HPI & below Physical Exam Constitutional: WD/WN, vitals as above Eyes: sclerae not anicteric Respiratory: normal respiratory effort, lungs clear to auscultation Cardiovascular: RRR, no murmur, no edema Gastrointestinal (Abdomen): normal bowel sounds, soft, nontender, no hepatosplenomegaly Skin: no rashes, warm and dry Psychiatric: A+Ox3, euthymic affect Results & Data Results & Data ([facility]) Vital Signs (Past 12 Hours) Vital Signs Temp Pulse Pulse Resp BP Pulse Ox 08/19/20 07:09 51 L 08/19/20 03:25 36.5 C 46 L 18 104/63 96 08/19/20 00:46 46 L 08/18/20 22:37 37.0 C 50 L 18 94/48 L 96 PG Care Time/CCT Total # of Minutes Spent Total Time Spent with Patient: Total time spent is greater than 50% in coordination of care (as documented) at patient's floor/unit and/or counseling patient: Coding Level of Care Code 83146 Subseq Obs Care Lvl 3 Diagnoses Rectal bleeding K62.5 Nausea R11.0
[2020-08-19 10:05] LABS: BUN Creatinine Ratio 7.4 (10-20); Calcium 9.2 mg/dl (8.5-10.1); Creatinine Clr Calc Pharmacy 104.3 ml/min; Est GFR (African American) 88.4; Est GFR (Non-African American) 76.3
--- NOTE | 2020-08-19 13:57 | Hospitalist Progress Note ---
Date of Service August 19, 2020 Assessment & Plan (1) Vomiting: (2) Rectal bleeding: per INGRID Levy S: Pt is 39 y/o M with PMH DM, HTN presented to ER with c/o bright red rectal bleeding with BMs x 3 months. Past week c/o nausea and vomiting with eating. In ER afebrile, vitals stable No leukocytosis, H/H: 15/43, BUN: 11, Cr: 1.0 CT ABD/PELVIS:There is mild wall thickening with mucosal hyperemia and minimal surrounding infiltration involving the distal duodenum and the jejunum. The appearance is consistent with a nonspecific duodenitis/jejunitis. no pneumatosis intestinalis, portal venous gas, intraperitoneal free air, or abdominal ascites. The distal esophagus is mildly distended and fluid-filled. There is mild esophageal wall thickening. There is no bowel obstruction. In ER given 1L NSS, GI cocktail, Zofran, Protonix and reports improvement GI consulted recommend EGD & Colonoscopy tomorrow continue Protonix IV BID, Sucralfate QID clear liquids for now, Bowel prep, NPO post midnight Atypical Chest Pain likely from Esophagitis Troponin levels x 3 negative Echo: no signs of ischemia Industrial Cleaning Technician consulted, no further cardiac testing (3) Diabetes mellitus, type II: A1c 9.1 Hold metformin, home insulin Basal bolus insulin per protocol (4) HTN (hypertension): Hold lisinopril for marginal BP DVT Prophylaxis SCDs only in light of hematochezia return to [facility] upon discharge Admission and Anticipated Discharge Date Admission Date: August 17, 2020 Subjective ff up for abdominal pain, rectal bleeding etc seen sitting up in bed, just had lunch not in distress states he feels somewhat better today no recurrence of chest pain mild abdominal pain, nausea but tolerating clears well 2 soft BMs, still reports hematochezia no shortness of breath, palpitations, dizziness no other symptoms Review of Systems Review of Systems: All systems reviewed & are unremarkable except as noted in Subjective Physical Exam Physical Exam: General- oriented x 3, not in distress, speaks in sentences with no effort or accessory muscle use Eyes- anicteric Neck- no JVD Lungs- clear breath sounds BL Heart- normal rate, regular rhythm; no murmurs Abdomen- normal bowel sounds, nondistended, soft, no tenderness Extremities- no pretibial edema, no calf tenderness Neuro- alert, oriented x 3; no gross focal neurologic deficits Skin- warm & dry Results & Data Results & Data ([facility]) Vital Signs (Past 12 Hours) Vital Signs Temp Pulse Pulse Resp BP Pulse Ox 08/19/20 11:31 36.8 C 51 L 18 125/79 94 08/19/20 07:09 51 L 08/19/20 03:25 36.5 C 46 L 18 104/63 96 Laboratory Results Laboratory Results - last 24 hr 08/18/20 08/18/20 08/19/20 16:40 20:06 07:55 WBC RBC Hgb Hct MCV MCH MCHC RDW Std Deviation RDW Coeff of Jossy Plt Count MPV Immature Gran % (Auto) Neut % (Auto) Lymph % (Auto) [place] % (Auto) Eos % (Auto) Baso % (Auto) Neut # (Auto) Lymph # (Auto) [place] # (Auto) Eos # (Auto) Baso # (Auto) Immature Gran # (Auto) Sodium Potassium Chloride Carbon Dioxide Anion Gap BUN Creatinine Est Cr Clr Drug Dosing Est GFR ( Amer) Est GFR (Non-Af Amer) BUN/Creatinine Ratio Glucose POC Glucose 84 118 H 108 H Calcium 08/19/20 08/19/20 08/19/20 09:07 09:07 11:50 WBC 4.28 L RBC 4.77 Hgb 13.9 L Hct 40.5 L MCV 84.9 MCH 29.1 MCHC 34.3 RDW Std Deviation 40.8 RDW Coeff of Jossy 13.0 Plt Count 327 MPV 9.9 Immature Gran % (Auto) 0.0 Neut % (Auto) 44.4 Lymph % (Auto) 44.6 [place] % (Auto) 6.3 Eos % (Auto) 4.2 Baso % (Auto) 0.5 Neut # (Auto) 1.90 Lymph # (Auto) 1.91 [place] # (Auto) 0.27 Eos # (Auto) 0.18 Baso # (Auto) 0.02 Immature Gran # (Auto) 0.00 Sodium 137 Potassium 4.0 Chloride 103 Carbon Dioxide 28 Anion Gap 6.0 BUN 9 Creatinine 1.20 Est Cr Clr Drug Dosing 104.3 Est GFR ( Amer) 88.4 Est GFR (Non-Af Amer) 76.3 BUN/Creatinine Ratio 7.4 L Glucose 225 H POC Glucose 133 H Calcium 9.2 (1) Vomiting Nausea presence: unspecified Vomiting Intractability: unspecified Vomiting type: unspecified Qualified Code(s): R11.10 - Vomiting, unspecified
[2020-08-19] MEDS ORDERED: LAVAGE SOLUTION 4000ML PO SCH (20:00)
[2020-08-20] MEDS ORDERED: Nursing to Pharmacy Communication SCH (04:45)
[2020-08-20] MEDS: INSULIN ASPART 100 UNITS/ML 3 ML PEN SC SCH ×4 (06:32→20:46)
[2020-08-20 07:21] LABS: Hematocrit (blood only) 40.5 % (42-52); Hemoglobin 13.8 g/dL (14.0-18.0); Mean Corpuscular Hemoglobin 28.8 pg (25-34); Mean Corpuscular Hgb Conc 34.1 g/dL (32-36); Mean Corpuscular Volume 84.6 fL (80-100); Mean Platelet Volume 9.5 fL (7.4-10.4); Platelet Count 291 K/uL (130-400); RDW Standard Deviation 39.8 fL (36.4-46.3); Red Blood Count 4.79 M/uL (4.7-6.1); White Blood Count 4.16 K/uL (4.8-10.8)
[2020-08-20 07:47] LABS: BUN Creatinine Ratio 5.6 (10-20); Calcium 9.7 mg/dl (8.5-10.1); Creatinine Clr Calc Pharmacy 109.7 ml/min; Est GFR (Non-African American) 80.3; Potassium 3.9 mmol/L (3.5-5.1)
[2020-08-20 08:02] LABS: Basophils # (auto) 0.02 K/uL (0-0.2); Basophils % (auto) 0.5 %; Eosinophils # (auto) 0.18 K/uL (0-0.5); Eosinophils % (auto) 4.3 %; Lymphocytes # (auto) 2.37 K/uL (1.2-3.4); Monocytes # (auto) 0.38 K/uL (0.11-0.59); Monocytes % (auto) 9.1 %; Neutrophils # (auto) 1.21 K/uL (1.4-6.5); Neutrophils % (auto) 29.1 %
--- NOTE | 2020-08-20 08:44 | Gastroenterology Progress Note ---
Date of Service August 20, 2020 Assessment & Plan (1) Rectal bleedin39 year old male admitted from [facility] w/ rectal bleeding, nausea/vomiting, remained clinically stable overnight prepped for EGD/Colon this AM NPO EGD/Colonoscopy (2) Vomiting: Admission and Anticipated Discharge Date Admission Date: August 17, 2020 Supervising Physician Co-Signing Physician Notes Attg add: Scopes show probable IBD with moder to severe proctitis, also mild ileitis. He also had a rectal polyp. Begin Canasa suppositiories for proctitis. Subjective Pt was seen and evaluated, chart reviewed Some bloating this AM No abd pain Was having BRB but now suggests no black or bloody stools with prep Review of Systems Constitutional: no fever, no chills and no fatigue Respiratory: no cough and no dyspnea Cardiovascular: no chest pain and no dyspnea Gastrointestinal: + bloating and + blood in stools; no melena Physical Exam Constitutional: no acute distress Neck: trachea midline Respiratory: normal respiratory effort; no respiratory distress and no labored breathing Cardiovascular: Rate/Rhythm: regular rate Gastrointestinal (Abdomen): Percussion/Palpation: abdomen soft; abdomen nontender, no guarding and abdomen not rigid Skin: no rashes, warm and dry Results & Data ([facility]) Vital Signs (Past 12 Hours) Vital Signs Temp Pulse Pulse Resp BP Pulse Ox 08/20/20 07:38 37.0 C 50 L 18 116/70 99 08/20/20 07:06 46 L 08/20/20 03:42 36.5 C 52 L 16 112/70 98 08/19/20 23:29 36.7 C 63 19 144/80 H 90 08/19/20 23:25 54 L Laboratory Results 08/20/20 08/20/20 08/20/20 Range/Units 07:25 07:06 07:06 WBC 4.16 L (4.8-10.8) K/uL RBC 4.79 (4.7-6.1) M/uL Hgb 13.8 L (14.0-18.0) g/dL Hct 40.5 L (42-52) % MCV 84.6 (80-100) fL MCH 28.8 (25-34) pg MCHC 34.1 (32-36) g/dL RDW Std Deviation 39.8 (36.4-46.3) fL RDW Coeff of Jossy 13.0 (11.5-14.5) % Plt Count 291 (130-400) K/uL MPV 9.5 (7.4-10.4) fL Immature Gran % (Auto) 0.0 % Neut % (Auto) 29.1 % Lymph % (Auto) 57.0 % [place] % (Auto) 9.1 % Eos % (Auto) 4.3 % Baso % (Auto) 0.5 % Neut # (Auto) 1.21 L (1.4-6.5) K/uL Lymph # (Auto) 2.37 (1.2-3.4) K/uL [place] # (Auto) 0.38 (0.11-0.59) K/uL Eos # (Auto) 0.18 (0-0.5) K/uL Baso # (Auto) 0.02 (0-0.2) K/uL Immature Gran # (Auto) 0.00 (0.00-0.02) K/uL Sodium 139 (136-145) mmol/L Potassium 3.9 (3.5-5.1) mmol/L Chloride 106 (98-107) mmol/L Carbon Dioxide 30 (21-32) mmol/L Anion Gap 3.0 (3-11) BUN 6 L (7-18) mg/dl Creatinine 1.15 (0.6-1.4) mg/dl Est Cr Clr Drug Dosing 109.7 ml/min Est GFR ( Amer) 93.0 Est GFR (Non-Af Amer) 80.3 BUN/Creatinine Ratio 5.6 L (10-20) Glucose 142 H (70-99) mg/dl POC Glucose 143 H (70-99) mg/dl Calcium 9.7 (8.5-10.1) mg/dl 08/20/20 08/19/20 08/19/20 Range/Units 06:20 20:25 16:51 WBC (4.8-10.8) K/uL RBC (4.7-6.1) M/uL Hgb (14.0-18.0) g/dL Hct (42-52) % MCV (80-100) fL MCH (25-34) pg MCHC (32-36) g/dL RDW Std Deviation (36.4-46.3) fL RDW Coeff of Jossy (11.5-14.5) % Plt Count (130-400) K/uL MPV (7.4-10.4) fL Immature Gran % (Auto) % Neut % (Auto) % Lymph % (Auto) % [place] % (Auto) % Eos % (Auto) % Baso % (Auto) % Neut # (Auto) (1.4-6.5) K/uL Lymph # (Auto) (1.2-3.4) K/uL [place] # (Auto) (0.11-0.59) K/uL Eos # (Auto) (0-0.5) K/uL Baso # (Auto) (0-0.2) K/uL Immature Gran # (Auto) (0.00-0.02) K/uL Sodium (136-145) mmol/L Potassium (3.5-5.1) mmol/L Chloride (98-107) mmol/L Carbon Dioxide (21-32) mmol/L Anion Gap (3-11) BUN (7-18) mg/dl Creatinine (0.6-1.4) mg/dl Est Cr Clr Drug Dosing ml/min Est GFR ( Amer) Est GFR (Non-Af Amer) BUN/Creatinine Ratio (10-20) Glucose (70-99) mg/dl POC Glucose 158 H 104 H 115 H (70-99) mg/dl Calcium (8.5-10.1) mg/dl 08/19/20 08/19/20 08/19/20 Range/Units 11:50 09:07 09:07 WBC 4.28 L (4.8-10.8) K/uL RBC 4.77 (4.7-6.1) M/uL Hgb 13.9 L (14.0-18.0) g/dL Hct 40.5 L (42-52) % MCV 84.9 (80-100) fL MCH 29.1 (25-34) pg MCHC 34.3 (32-36) g/dL RDW Std Deviation 40.8 (36.4-46.3) fL RDW Coeff of Jossy 13.0 (11.5-14.5) % Plt Count 327 (130-400) K/uL MPV 9.9 (7.4-10.4) fL Immature Gran % (Auto) 0.0 % Neut % (Auto) 44.4 % Lymph % (Auto) 44.6 % [place] % (Auto) 6.3 % Eos % (Auto) 4.2 % Baso % (Auto) 0.5 % Neut # (Auto) 1.90 (1.4-6.5) K/uL Lymph # (Auto) 1.91 (1.2-3.4) K/uL [place] # (Auto) 0.27 (0.11-0.59) K/uL Eos # (Auto) 0.18 (0-0.5) K/uL Baso # (Auto) 0.02 (0-0.2) K/uL Immature Gran # (Auto) 0.00 (0.00-0.02) K/uL Sodium 137 (136-145) mmol/L Potassium 4.0 (3.5-5.1) mmol/L Chloride 103 (98-107) mmol/L Carbon Dioxide 28 (21-32) mmol/L Anion Gap 6.0 (3-11) BUN 9 (7-18) mg/dl Creatinine 1.20 (0.6-1.4) mg/dl Est Cr Clr Drug Dosing 104.3 ml/min Est GFR ( Amer) 88.4 Est GFR (Non-Af Amer) 76.3 BUN/Creatinine Ratio 7.4 L (10-20) Glucose 225 H (70-99) mg/dl POC Glucose 133 H (70-99) mg/dl Calcium 9.2 (8.5-10.1) mg/dl (1) Vomiting Nausea presence: unspecified Vomiting Intractability: unspecified Vomiting type: unspecified Qualified Code(s): R11.10 - Vomiting, unspecified
[2020-08-20] MEDS: INSULIN GLARGINE SOLOSTAR 100 UNITS/ML 3 ML PEN SC SCH ×2 (11:06→20:45)
[2020-08-20] MEDS: PANTOprazole 40 MG in SYRINGE 0 ML IV SCH (11:08)
[2020-08-20] MEDS: SUCRALFATE 1 GM/10 ML UDC PO SCH ×4 (11:08→20:45)
--- NOTE | 2020-08-20 12:44 | Anesthesiology Consultation ---
Date of Service August 20, 2020 Assessment & Plan Chart Review Chart Review: Acceptable Risk for Surgery and Patient NOT seen in Pre Admission Testing Consults Requested none ASA ASA2 Proposed Anesthesia Anesthesia Type: MAC History Surgery Operation Date: 08/20/20 16:45 Proposed Procedures p Colonscopy EGD Dr Em - Felice Em MD Height/Weight Height: 5 ft 11 in Weight: 109.6 kg Allergies Allergy/AdvReac Type Severity Reaction Status Date / Time No Known Allergies Allergy Unknown Verified 08/17/20 13:48 chicken derived AdvReac Unknown NAUSEA Verified 08/17/20 13:48 Medications Home Medications Medication Instructions Recorded Confirmed Last Taken insulin glargine [Lantus U-100 23 unit SUBCUT DAILY 08/17/20 08/17/20 08/17/20 Insulin] insulin regular human [Novolin R 0 unit SUBCUT UD 08/17/20 08/17/20 Unknown Regular U-100 Insuln] lisinopril 2.5 mg PO DAILY 08/17/20 08/17/20 Unknown metformin 1,000 mg PO BID 08/17/20 08/17/20 Unknown omeprazole 20 mg PO DAILY 08/17/20 08/17/20 Unknown Active Medications Generic Name Dose Route Start Last Admin Trade Name Freq PRN Reason Stop Dose Admin Pantoprazole Sodium 40 mg/ 10 mls @ 5 mls/min 08/17/20 21:30 08/20/20 11:08 Syringe IV 09/16/20 21:29 5 mls/min BID RAVIN Administration Insulin Aspart 0 units 08/20/20 06:00 08/20/20 06:32 Insulin Aspart 100 Units/Ml 3 Ml Pen SC 09/19/20 05:59 Not Given Q6 RAVIN Insulin Glargine 0 - 11 units 08/17/20 21:29 08/20/20 11:06 Insulin Glargine Solostar 100 Units/Ml 3 Ml Pen SC 09/16/20 21:28 6 units BID RAVIN Administration Lisinopril 2.5 mg 08/18/20 09:00 08/18/20 08:35 Lisinopril 2.5 Mg Tab PO 09/17/20 08:59 2.5 mg DAILY RAVIN Administration Ondansetron HCl 4 mg 08/17/20 21:29 08/19/20 05:05 Ondansetron Inj 2 Mg/Ml 2 Ml Vial IV 09/16/20 21:28 4 mg Q6H PRN Administration Nausea Polyethylene Glycol/Electrolytes 16 dose 08/19/20 20:00 08/19/20 20:05 Lavage Solution 4000ml PO 08/20/20 19:59 16 dose TODAY@2000 RAVIN Administration Sucralfate 1 gm 08/18/20 13:00 08/20/20 11:08 Sucralfate 1 Gm/10 Ml Udc PO 09/17/20 12:59 Not Given QID [facility] Past Medical History Medical History (Updated 08/20/20 @ 12:42 by Tenzin Holman MD) Chest pain Diabetes mellitus, type II HTN (hypertension) Obese Exercise / Class Metabolic Activity II 4-5 Yardwork/Stairs/Walk up hill Past Family History Family History Family/Other Colorectal cancer Aunt Grandfather (Maternal) Diabetes Mother Diabetes Past Surgical History Surgical History H/O right knee surgery Past Anesthesia History No Hx of Anesthesia Complications and No Family Hx of Anesthesia Complications History of PONV No Hx of PONV and No Hx of Motion Sickness Social History Smoking Status: Former smoker Hx Alcohol Use: No Hx Substance Use: No Physical Exam Vital Signs Last Vital Signs Temp 36.7 C 08/20/20 11:18 Pulse 56 L 08/20/20 11:18 Resp 20 08/20/20 11:18 BP 144/85 H 08/20/20 11:18 Pulse Ox 95 08/20/20 11:18 Testing Laboratory Results 08/20/20 07:06 08/20/20 07:06 APTT 30.1 Seconds (21.0-31.0) 08/18/20 00:06 Hemoglobin A1c 9.1 % (4.5-5.6) H 08/18/20 04:28 Urine Color Yellow 08/17/20 13:24 Urine Appearance Clear (Clear) 08/17/20 13:24 Urine pH 5.5 (4.5-7.5) 08/17/20 13:24 Ur Specific [place] 1.037 (1.000-1.030) H 08/17/20 13:24 Urine Protein 1+ (Negative) H 08/17/20 13:24 Urine Glucose (UA) 3+ (Negative) H 08/17/20 13:24 Urine Ketones Trace (Negative) H 08/17/20 13:24 Urine Nitrite Negative (Negative) 08/17/20 13:24 Ur Leukocyte Esterase Negative (Negative) 08/17/20 13:24 Urine WBC (Auto) 1-5 /hpf (0-5) 08/17/20 13:24 Urine RBC (Auto) 0-4 /hpf (0-4) 08/17/20 13:24 U Hyaline Cast (Auto) 1-5 /lpf (0-5) 08/17/20 13:24 U Epithel Cells (Auto) 0-5 /lpf (0-5) 08/17/20 13:24 Urine Bacteria (Auto) Negative (Negative) 08/17/20 13:24 08/20/20 08/20/20 08/20/20 11:40 07:25 06:20 POC Glucose 119 H 143 H 158 H Electrocardiogram Date: 08/18/20 Findings: + SB @ (at 53) Chest X-Ray Date: 08/18/20 Findings: + NAD Echocardiogram Date: 08/18/20 EF: 60% LV Function: normal RWMA: + none Valvular Disease: + no significant valvular disease
[2020-08-20] MEDS ORDERED: ePHEDrine sulfate 50 MG/ML AMP IV PRN (12:53)
[2020-08-20] MEDS ORDERED: ATROPINE SULFATE 0.1 MG/ML 10ML SYR IV PRN (12:53)
--- NOTE | 2020-08-20 12:53 | History & Physical Report ---
Date of Service August 20, 2020 Assessment & Plan Admission and Anticipated Discharge Date Admission Date: August 17, 2020 History of Present Illness Primary Care Provider: NAVYA Hurley Pt with nausea and rectal bleeding. CV: RRR Resp: CTA Abd: soft A?p: EGD and csocpy today Allergies Allergy/AdvReac Type Severity Reaction Status Date / Time No Known Allergies Allergy Unknown Verified 08/17/20 13:48 chicken derived AdvReac Unknown NAUSEA Verified 08/17/20 13:48 Home Medications Medication Instructions Recorded Confirmed Type insulin glargine [Lantus U-100 23 unit SUBCUT DAILY 08/17/20 08/17/20 History Insulin] insulin regular human [Novolin R 0 unit SUBCUT UD 08/17/20 08/17/20 History Regular U-100 Insuln] lisinopril 2.5 mg PO DAILY 08/17/20 08/17/20 History metformin 1,000 mg PO BID 08/17/20 08/17/20 History omeprazole 20 mg PO DAILY 08/17/20 08/17/20 History Past Med/Surg History Medical History (Updated 08/20/20 @ 12:42 by Tenzin Holman MD) Chest pain Diabetes mellitus, type II HTN (hypertension) Obese Surgical History H/O right knee surgery Family History Family/Other Colorectal cancer Aunt Grandfather (Maternal) Diabetes Mother Diabetes Social History Smoking Status: Former smoker Hx Alcohol Use: No Hx Substance Use: No Preferred Language: Amharic Communication Ability: Effective 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
[2020-08-20] MEDS ORDERED: LIDOCAINE HCL 2% 2 ML VIAL/AMP(20MG/ML) INFIL ONE (12:56)
[2020-08-20] MEDS ORDERED: PROPOFOL IV EMULSION 10 MG/ML 20 ML VIAL IV ONE (12:56)
[2020-08-20] MEDS ORDERED: MIDAZOLAM HCL 1 MG/ML 2ML VIAL ONE (13:03)
--- NOTE | 2020-08-20 14:04 | Anesthesiology Progress Note ---
Date of Service August 20, 2020 Anesthesia Post Procedure Vital Signs Vital Signs: Temp Pulse Pulse Resp BP Pulse Ox 08/20/20 12:51 36.6 C 55 L 16 149/85 H 98 08/20/20 11:18 36.7 C 56 L 20 144/85 H 95 08/20/20 07:38 37.0 C 50 L 18 116/70 99 08/20/20 07:06 46 L 08/20/20 03:42 36.5 C 52 L 16 112/70 98 08/19/20 23:29 36.7 C 63 19 144/80 H 90 08/19/20 23:25 54 L 08/19/20 20:18 37.1 C 55 L 18 130/84 97 08/19/20 14:54 37.0 C 51 L 16 120/71 97 08/19/20 14:20 57 L Pain Intensity Chest: Pain Intensity: 0 Transfer of Care Handoff Completed per policy Notes Mental Status: alert / awake / arousable Patient Amnestic to Procedure: Yes Nausea / Vomiting: adequately controlled Pain: adequately controlled Airway Patency, RR, SpO2: stable & adequate BP & HR: stable & adequate Hydration State: stable & adequate Anesthetic Complications: no major complications apparent
--- NOTE | 2020-08-20 14:44 | GI REPORT ---
Patient Name: Bakari Benitez Procedure Date: 08/20/2020 2:31 PM Date of : 1980 Admit Type: Inpatient Age: 39 Gender: Male Attending MD: Felice Em MD Procedure: Upper GI endoscopy Providers: Felice Em MD Referring MD: Mei MENDOSA Indications: Nausea Medicines: See the Anesthesia note for documentation of the administered medications Complications: No immediate complications. Estimated Blood Loss: Estimated blood loss: none. Procedure: Pre-Anesthesia Assessment: - ASA Grade Assessment: II - A patient with mild systemic disease. After obtaining informed consent, the endoscope was passed under direct vision. Throughout the procedure, the patient's blood pressure, pulse, and oxygen saturations were monitored continuously. The Scope was introduced through the mouth, and advanced to the second part of duodenum. The upper GI endoscopy was accomplished without difficulty. The patient tolerated the procedure well. Findings: The esophagus was normal. The entire examined stomach was normal. Biopsies were taken with a cold forceps for histology. There was moderate patchy erythema in the duodenal bulb. Biopsies taken with a cold forceps for histology. The duodenum was otherwise normal. Impression: Duodenitis. Recommendation: - Discharge patient to floor. Twice daily PPI. Nette Weathers MD 08/20/2020 2:43:32 PM This report has been signed electronically. Note Initiated On: 08/20/2020 2:31 PM Number of Addenda: 0 I attest to the content of the Intraoperative Record and orders documented therein, exceptions below {[id number]}
--- NOTE | 2020-08-20 14:49 | GI REPORT ---
Patient Name: Bakari Benitez Procedure Date: 08/20/2020 2:32 PM Date of : 1980 Admit Type: Inpatient Age: 39 Gender: Male Attending MD: Felice Em MD Procedure: Colonoscopy Providers: Felice Em MD Referring MD: Mei MENDOSA Indications: Rectal bleeding Medicines: See the Anesthesia note for documentation of the administered medications Complications: No immediate complications. Estimated Blood Loss: Estimated blood loss: none. Procedure: Pre-Anesthesia Assessment: - ASA Grade Assessment: II - A patient with mild systemic disease. After I obtained informed consent, the scope was passed under direct vision. Throughout the procedure, the patient's blood pressure, pulse, and oxygen saturations were monitored continuously. The scope was introduced through the anus and advanced to the terminal ileum. The colonoscopy was performed without difficulty. The patient tolerated the procedure well. The quality of the bowel preparation was good. Findings: The perianal and digital rectal examinations were normal. There was evidence of severe proctitis. There was marked granularity of the distal 5 cm of the colonic mucosa. There was a 7 mm polyp in the rectum. This was removed by saline lift and hot snare. There was a 2 mm polyp in the sigmoid colon removed by cold snare. A few sigmoid diverticula were seen. There was patchy erythema in the cecum around the appendix, consistent with a appendiceal patch. The remainder of the colon was normal. The ileum was deeply intubated. There were three aphthous ulcers in the ileum. Biopsies taken from throughout the colon and from the ileum Impression: Exam suggestive of IBD. Rectal polyp, sigmoid polyp. Recommendation: - Discharge patient to Floor. Begin topical 5 ASA therapy.. Nette Weathers MD 08/20/2020 2:48:51 PM This report has been signed electronically. Note Initiated On: 08/20/2020 2:32 PM Number of Addenda: 0 I attest to the content of the Intraoperative Record and orders documented therein, exceptions below {[id number]}
--- NOTE | 2020-08-20 18:24 | Hospitalist Progress Note ---
Date of Service August 20, 2020 Assessment & Plan (1) Vomiting: (2) Rectal bleeding: per INGRID Levy S: Pt is 39 y/o M with PMH DM, HTN presented to ER with c/o bright red rectal bleeding with BMs x 3 months. Past week c/o nausea and vomiting with eating. In ER afebrile, vitals stable No leukocytosis, H/H: 15/43, BUN: 11, Cr: 1.0 CT ABD/PELVIS:There is mild wall thickening with mucosal hyperemia and minimal surrounding infiltration involving the distal duodenum and the jejunum. The appearance is consistent with a nonspecific duodenitis/jejunitis. no pneumatosis intestinalis, portal venous gas, intraperitoneal free air, or abdominal ascites. The distal esophagus is mildly distended and fluid-filled. There is mild esophageal wall thickening. There is no bowel obstruction. In ER given 1L NSS, GI cocktail, Zofran, Protonix and reports improvement GI consulted Status post EGD: Duodenitis Status post colonoscopy: Severe proctitis-possible IBD, polyps continue Protonix p.o. BID, Sucralfate QID clear liquids for now, advance to soft diet in the evening if tolerated Awaiting further GI recommendations Atypical Chest Pain likely from Esophagitis Troponin levels x 3 negative Echo: no signs of ischemia Measurement Analyst consulted, no further cardiac testing (3) Diabetes mellitus, type II: A1c 9.1 Hold metformin, home insulin Basal bolus insulin per protocol (4) HTN (hypertension): Hold lisinopril for marginal BP DVT Prophylaxis SCDs only in light of hematochezia return to [facility] upon discharge Admission and Anticipated Discharge Date Admission Date: August 17, 2020 Subjective Follow-up for abdominal pain, hematochezia Seen resting in bed, comfortable, not in distress States he is having some lower abdominal pain today, still had hematochezia with bowel movements this morning No chest pain Denies headache, dizziness, palpitations Has occasional nausea Denies any other symptoms Review of Systems Review of Systems: All systems reviewed & are unremarkable except as noted in Subjective Physical Exam Physical Exam: General- oriented x 3, not in distress, speaks in sentences with no effort or accessory muscle use Eyes- anicteric Neck- no JVD Lungs- clear breath sounds bilaterally Heart- normal rate, regular rhythm; no murmurs Abdomen- normal bowel sounds, nondistended, soft, mild lower quadrant tenderness Extremities- no pretibial edema, no calf tenderness Neuro- alert, oriented x 3; no gross focal neurologic deficits Skin- warm & dry Results & Data Results & Data ([facility]) Vital Signs (Past 12 Hours) Vital Signs Temp Pulse Pulse Resp BP Pulse Ox 08/20/20 17:24 70 08/20/20 15:00 36.4 C L 60 16 131/80 98 08/20/20 14:46 36.6 C 70 20 134/86 97 08/20/20 14:30 61 20 137/76 98 08/20/20 14:16 52 L 18 138/65 98 08/20/20 14:00 55 L 16 168/77 H 98 08/20/20 12:51 36.6 C 55 L 16 149/85 H 98 08/20/20 11:18 36.7 C 56 L 20 144/85 H 95 08/20/20 07:38 37.0 C 50 L 18 116/70 99 08/20/20 07:06 46 L Laboratory Results Laboratory Results - last 24 hr 08/19/20 08/20/20 08/20/20 20:25 06:20 07:06 WBC 4.16 L RBC 4.79 Hgb 13.8 L Hct 40.5 L MCV 84.6 MCH 28.8 MCHC 34.1 RDW Std Deviation 39.8 RDW Coeff of Jossy 13.0 Plt Count 291 MPV 9.5 Immature Gran % (Auto) 0.0 Neut % (Auto) 29.1 Lymph % (Auto) 57.0 [place] % (Auto) 9.1 Eos % (Auto) 4.3 Baso % (Auto) 0.5 Neut # (Auto) 1.21 L Lymph # (Auto) 2.37 [place] # (Auto) 0.38 Eos # (Auto) 0.18 Baso # (Auto) 0.02 Immature Gran # (Auto) 0.00 Sodium Potassium Chloride Carbon Dioxide Anion Gap BUN Creatinine Est Cr Clr Drug Dosing Est GFR ( Amer) Est GFR (Non-Af Amer) BUN/Creatinine Ratio Glucose POC Glucose 104 H 158 H Calcium Stl C. diff Tox B Gene Giardia Antigen 08/20/20 08/20/20 08/20/20 07:06 07:25 11:40 WBC RBC Hgb Hct MCV MCH MCHC RDW Std Deviation RDW Coeff of Jossy Plt Count MPV Immature Gran % (Auto) Neut % (Auto) Lymph % (Auto) [place] % (Auto) Eos % (Auto) Baso % (Auto) Neut # (Auto) Lymph # (Auto) [place] # (Auto) Eos # (Auto) Baso # (Auto) Immature Gran # (Auto) Sodium 139 Potassium 3.9 Chloride 106 Carbon Dioxide 30 Anion Gap 3.0 BUN 6 L Creatinine 1.15 Est Cr Clr Drug Dosing 109.7 Est GFR ( Amer) 93.0 Est GFR (Non-Af Amer) 80.3 BUN/Creatinine Ratio 5.6 L Glucose 142 H POC Glucose 143 H 119 H Calcium 9.7 Stl C. diff Tox B Gene Giardia Antigen 08/20/20 08/20/20 08/20/20 13:35 13:35 16:46 WBC RBC Hgb Hct MCV MCH MCHC RDW Std Deviation RDW Coeff of Jossy Plt Count MPV Immature Gran % (Auto) Neut % (Auto) Lymph % (Auto) [place] % (Auto) Eos % (Auto) Baso % (Auto) Neut # (Auto) Lymph # (Auto) [place] # (Auto) Eos # (Auto) Baso # (Auto) Immature Gran # (Auto) Sodium Potassium Chloride Carbon Dioxide Anion Gap BUN Creatinine Est Cr Clr Drug Dosing Est GFR ( Amer) Est GFR (Non-Af Amer) BUN/Creatinine Ratio Glucose POC Glucose 108 H Calcium Stl C. diff Tox B Gene Negative Cdiff Gene Giardia Antigen Pending (1) Vomiting Nausea presence: unspecified Vomiting Intractability: unspecified Vomiting type: unspecified Qualified Code(s): R11.10 - Vomiting, unspecified
[2020-08-20] MEDS: PANTOprazole 40 MG TAB PO SCH (20:45)
[2020-08-21 06:48] LABS: Hematocrit (blood only) 40.6 % (42-52); Hemoglobin 14.4 g/dL (14.0-18.0); Mean Corpuscular Hemoglobin 29.8 pg (25-34); Mean Corpuscular Hgb Conc 35.5 g/dL (32-36); Mean Corpuscular Volume 83.9 fL (80-100); Mean Platelet Volume 9.7 fL (7.4-10.4); Platelet Count 343 K/uL (130-400); RDW Coefficient of Variation 13.1 % (11.5-14.5); RDW Standard Deviation 39.6 fL (36.4-46.3); Red Blood Count 4.84 M/uL (4.7-6.1); White Blood Count 4.66 K/uL (4.8-10.8)
[2020-08-21 07:24] LABS: Basophils # (auto) 0.03 K/uL (0-0.2); Basophils % (auto) 0.6 %; Eosinophils # (auto) 0.18 K/uL (0-0.5); Eosinophils % (auto) 3.9 %; Immature Granulocytes # (auto) 0.01 K/uL (0.00-0.02); Immature Granulocytes % (auto) 0.2 %; Lymphocytes # (auto) 2.39 K/uL (1.2-3.4); Lymphocytes % (auto) 51.3 %; Monocytes # (auto) 0.29 K/uL (0.11-0.59); Monocytes % (auto) 6.2 %; Neutrophils # (auto) 1.76 K/uL (1.4-6.5); Neutrophils % (auto) 37.8 %
[2020-08-21] MEDS: SUCRALFATE 1 GM/10 ML UDC PO SCH ×2 (08:14→12:17)
[2020-08-21] MEDS: INSULIN ASPART 100 UNITS/ML 3 ML PEN SC SCH ×2 (08:14→12:10)
[2020-08-21] MEDS: PANTOprazole 40 MG TAB PO SCH (08:14)
[2020-08-21] MEDS: INSULIN GLARGINE SOLOSTAR 100 UNITS/ML 3 ML PEN SC SCH (08:17)
--- NOTE | 2020-08-21 08:37 | Gastroenterology Progress Note ---
Date of Service August 21, 2020 Assessment & Plan (1) Rectal bleedin39 year old male admitted from [facility] w/ rectal bleeding, nausea/vomiting, remained clinically stable , EGD/Colon concerning for IBD, started on topcal mesalamines, biopsies pending Await biopsies Start Rowasa enema daily Bentyl 10 mg TID Attg add: I interviewed and examined pt, reviewed chart and labs. Pt with probable IBD. He feels relatively well today. OK for d/c with outpt f/u. Please discharge on Bentyl 10 BID PRN, PPI once daily, Rowasa 4 gms daily. He should have f/u with outpt GI in 1 month, which needs to be arranged through long-term health service. (2) Vomiting: Admission and Anticipated Discharge Date Admission Date: August 17, 2020 Subjective Pt was seen and evaluated, chart reviewed. Some abd soreness this AM Some loose stools EGD/Colon concerning for IBD but biopsies are still pending Review of Systems 2 Constitutional: no fever, no chills, no fatigue and no anorexia Respiratory: no cough and no dyspnea Cardiovascular: no chest pain Gastrointestinal: + abdominal pain, + nausea and + blood in stools; no coffee ground emesis and no melena Physical Exam Constitutional: no acute distress and not ill appearing Neck: trachea midline Respiratory: normal respiratory effort Cardiovascular: Rate/Rhythm: regular rate Gastrointestinal (Abdomen): Percussion/Palpation: + abdomen tender and abdomen soft Skin: no rashes, warm and dry Results & Data ([facility]) Vital Signs (Past 12 Hours) Vital Signs Temp Pulse Pulse Resp BP Pulse Ox 08/21/20 07:51 36.5 C 56 L 16 131/78 96 08/21/20 07:08 52 L 08/21/20 03:02 36.7 C 50 L 17 136/75 97 08/20/20 23:43 56 L 08/20/20 23:02 36.6 C 58 L 19 138/74 94 Laboratory Results 08/21/20 08/21/20 08/20/20 Range/Units 07:24 06:26 20:16 WBC 4.66 L (4.8-10.8) K/uL RBC 4.84 (4.7-6.1) M/uL Hgb 14.4 (14.0-18.0) g/dL Hct 40.6 L (42-52) % MCV 83.9 (80-100) fL MCH 29.8 (25-34) pg MCHC 35.5 (32-36) g/dL RDW Std Deviation 39.6 (36.4-46.3) fL RDW Coeff of Jossy 13.1 (11.5-14.5) % Plt Count 343 (130-400) K/uL MPV 9.7 (7.4-10.4) fL Immature Gran % (Auto) 0.2 % Neut % (Auto) 37.8 % Lymph % (Auto) 51.3 % [place] % (Auto) 6.2 % Eos % (Auto) 3.9 % Baso % (Auto) 0.6 % Neut # (Auto) 1.76 (1.4-6.5) K/uL Lymph # (Auto) 2.39 (1.2-3.4) K/uL [place] # (Auto) 0.29 (0.11-0.59) K/uL Eos # (Auto) 0.18 (0-0.5) K/uL Baso # (Auto) 0.03 (0-0.2) K/uL Immature Gran # (Auto) 0.01 (0.00-0.02) K/uL POC Glucose 134 H 159 H (70-99) mg/dl Stl C. diff Tox B Gene (Neg) Giardia Antigen 08/20/20 08/20/20 08/20/20 Range/Units 16:46 13:35 13:35 WBC (4.8-10.8) K/uL RBC (4.7-6.1) M/uL Hgb (14.0-18.0) g/dL Hct (42-52) % MCV (80-100) fL MCH (25-34) pg MCHC (32-36) g/dL RDW Std Deviation (36.4-46.3) fL RDW Coeff of Jossy (11.5-14.5) % Plt Count (130-400) K/uL MPV (7.4-10.4) fL Immature Gran % (Auto) % Neut % (Auto) % Lymph % (Auto) % [place] % (Auto) % Eos % (Auto) % Baso % (Auto) % Neut # (Auto) (1.4-6.5) K/uL Lymph # (Auto) (1.2-3.4) K/uL [place] # (Auto) (0.11-0.59) K/uL Eos # (Auto) (0-0.5) K/uL Baso # (Auto) (0-0.2) K/uL Immature Gran # (Auto) (0.00-0.02) K/uL POC Glucose 108 H (70-99) mg/dl Stl C. diff Tox B Gene Negative Cdiff Gene (Neg) Giardia Antigen Pending 08/20/20 Range/Units 11:40 WBC (4.8-10.8) K/uL RBC (4.7-6.1) M/uL Hgb (14.0-18.0) g/dL Hct (42-52) % MCV (80-100) fL MCH (25-34) pg MCHC (32-36) g/dL RDW Std Deviation (36.4-46.3) fL RDW Coeff of Jossy (11.5-14.5) % Plt Count (130-400) K/uL MPV (7.4-10.4) fL Immature Gran % (Auto) % Neut % (Auto) % Lymph % (Auto) % [place] % (Auto) % Eos % (Auto) % Baso % (Auto) % Neut # (Auto) (1.4-6.5) K/uL Lymph # (Auto) (1.2-3.4) K/uL [place] # (Auto) (0.11-0.59) K/uL Eos # (Auto) (0-0.5) K/uL Baso # (Auto) (0-0.2) K/uL Immature Gran # (Auto) (0.00-0.02) K/uL POC Glucose 119 H (70-99) mg/dl Stl C. diff Tox B Gene (Neg) Giardia Antigen (1) Vomiting Nausea presence: unspecified Vomiting Intractability: unspecified Vomiting type: unspecified Qualified Code(s): R11.10 - Vomiting, unspecified
[2020-08-21] MEDS ORDERED: MESALAMINE 4 GM/60 ML ENEMA PR SCH (09:00)
--- NOTE | 2020-08-21 13:23 | Hospitalist Progress Note ---
Date of Service August 21, 2020 Assessment & Plan (1) Vomiting: (2) Rectal bleeding: per INGRID Levy S: Pt is 39 y/o M with PMH DM, HTN presented to ER with c/o bright red rectal bleeding with BMs x 3 months. Past week c/o nausea and vomiting with eating. In ER afebrile, vitals stable No leukocytosis, H/H: 15/43, BUN: 11, Cr: 1.0 CT ABD/PELVIS:There is mild wall thickening with mucosal hyperemia and minimal surrounding infiltration involving the distal duodenum and the jejunum. The appearance is consistent with a nonspecific duodenitis/jejunitis. no pneumatosis intestinalis, portal venous gas, intraperitoneal free air, or abdominal ascites. The distal esophagus is mildly distended and fluid-filled. There is mild esophageal wall thickening. There is no bowel obstruction. In ER given 1L NSS, GI cocktail, Zofran, Protonix and reports improvement Hg stable overall , remained 13-14 GI consulted Status post EGD: Duodenitis Status post colonoscopy: Severe proctitis-possible IBD, polyps pathology reports from above pending continue Protonix p.o. BID continue Rowasa Per rectum patient needs to establish with a casing running machine tender and follow up in 1-2 weeks soft diet Atypical Chest Pain Troponin levels x 3 negative Echo: no signs of ischemia Onion Farmer consulted, no further cardiac testing (3) Diabetes mellitus, type II: A1c 9.1 resume usual regimen outpatient ff up and management (4) HTN (hypertension): resume Lisinopril DVT Prophylaxis SCDs only in light of hematochezia return to [facility] upon discharge patient needs to establish with a Development Editor as outpatient and follow up in 1-2 weeks Admission and Anticipated Discharge Date Admission Date: August 17, 2020 Subjective ff up for duodenitis, proctitis seen resting in bed, comfortable not in distress states he feels fine overall no chest pain, dyspnea no abdominal pain has mild dyspnea no other symptoms states he is ready for discharge today no other symptoms Review of Systems Review of Systems: All systems reviewed & are unremarkable except as noted in Subjective Physical Exam Physical Exam: General- oriented x 3, not in distress, speaks in sentences with no effort or accessory muscle use Eyes- anicteric Neck- no JVD Lungs- clear BS BL no rales no wheezing Heart- normal rate, regular rhythm; no murmurs Abdomen- normal bowel sounds, nondistended, soft, nontender Extremities- no pretibial edema, no calf tenderness Neuro- alert, oriented x 3; no gross focal neurologic deficits Skin- warm & dry Results & Data Results & Data ([facility]) Vital Signs (Past 12 Hours) Vital Signs Temp Pulse Pulse Pulse Resp BP Pulse Ox 08/21/20 11:27 36.6 C 56 L 18 134/80 96 08/21/20 11:01 36.5 C 47 L 56 L 16 131/78 96 08/21/20 07:51 36.5 C 56 L 16 131/78 96 08/21/20 07:08 52 L 08/21/20 03:02 36.7 C 50 L 17 136/75 97 Laboratory Results Laboratory Results - last 24 hr 08/20/20 08/20/20 08/20/20 13:35 13:35 16:46 WBC RBC Hgb Hct MCV MCH MCHC RDW Std Deviation RDW Coeff of Jossy Plt Count MPV Immature Gran % (Auto) Neut % (Auto) Lymph % (Auto) [place] % (Auto) Eos % (Auto) Baso % (Auto) Neut # (Auto) Lymph # (Auto) [place] # (Auto) Eos # (Auto) Baso # (Auto) Immature Gran # (Auto) POC Glucose 108 H Stl C. diff Tox B Gene Negative Cdiff Gene Giardia Antigen Pending 08/20/20 08/21/20 08/21/20 20:16 06:26 07:24 WBC 4.66 L RBC 4.84 Hgb 14.4 Hct 40.6 L MCV 83.9 MCH 29.8 MCHC 35.5 RDW Std Deviation 39.6 RDW Coeff of Jossy 13.1 Plt Count 343 MPV 9.7 Immature Gran % (Auto) 0.2 Neut % (Auto) 37.8 Lymph % (Auto) 51.3 [place] % (Auto) 6.2 Eos % (Auto) 3.9 Baso % (Auto) 0.6 Neut # (Auto) 1.76 Lymph # (Auto) 2.39 [place] # (Auto) 0.29 Eos # (Auto) 0.18 Baso # (Auto) 0.03 Immature Gran # (Auto) 0.01 POC Glucose 159 H 134 H Stl C. diff Tox B Gene Giardia Antigen 08/21/20 11:18 WBC RBC Hgb Hct MCV MCH MCHC RDW Std Deviation RDW Coeff of Jossy Plt Count MPV Immature Gran % (Auto) Neut % (Auto) Lymph % (Auto) [place] % (Auto) Eos % (Auto) Baso % (Auto) Neut # (Auto) Lymph # (Auto) [place] # (Auto) Eos # (Auto) Baso # (Auto) Immature Gran # (Auto) POC Glucose 118 H Stl C. diff Tox B Gene Giardia Antigen (1) Vomiting Nausea presence: unspecified Vomiting Intractability: unspecified Vomiting type: unspecified Qualified Code(s): R11.10 - Vomiting, unspecified
--- NOTE | 2020-08-21 14:00 | Discharge Summary ---
Date of Service August 21, 2020 Admission HPI Per Admitting Provider Pt is 39 y/o M with PMH DM, HTN presented to ER with c/o bright red rectal bleeding with BMs x 3 months. Past week c/o nausea and vomiting with eating. Didn't eat yesterday as was afraid would vomit. C/O upper and lower abdominal pressure today. Denies constipation, straining to have BM or painful BM's. Today felt light headed with standing. Denies fever/chills, diaphoresis, hematemesis, melena, ABDI, syncope, vision changes, neck pain, CP, SOB, orthopnea, palpitations, cough, sore throat, choking, otalgia, rhinorrhea, paresthesias, weakness, extremity weakness, extremity edema, rashes, urinary symptoms. Admission Exam Per Admitting Provider General: no distress, WDWN Head: normocephalic, atraumatic Eyes: PERRL, EOM's intact, conjunctiva non-injected, anicteric ENT: normal inspection external ears, nose, mucous membranes moist Neck: supple, trachea midline Lungs: clear, no respiratory distress, no wheezing/rhonchi/rales CV: RRR, no murmur, no pretibial edema Abd: normal BS, soft, mild tenderness to palpation epigastric without rebound or guarding Ext: no cyanosis, no calf tenderness Neuro: A&O x 3, no focal deficits noted, normal affect Skin: warm, dry Principal Diagnosis DUODENITIS SEVERE PROCTITIS, POSSIBLE INFLAMMATORY BOWEL DISEASE Discharge Exam General- oriented x 3, not in distress, speaks in sentences with no effort or accessory muscle use Eyes- anicteric Neck- no JVD Lungs- clear BS BL no rales no wheezing Heart- normal rate, regular rhythm; no murmurs Abdomen- normal bowel sounds, nondistended, soft, nontender Extremities- no pretibial edema, no calf tenderness Neuro- alert, oriented x 3; no gross focal neurologic deficits Skin- warm & dry Discharge Data Allergies Allergy/AdvReac Type Severity Reaction Status Date / Time No Known Allergies Allergy Unknown Verified 08/17/20 13:48 chicken derived AdvReac Unknown NAUSEA Verified 08/17/20 13:48 Consultations 08/17/20 17:16 ED Decision to Admit Stat 08/17/20 21:29 Consult Case Management - Discharge Planning Routine 08/18/20 00:49 Consult Cardiology Routine 08/18/20 08:00 Consult Gastroenterology Routine Procedures Performed Operation Date: 08/20/20 16:45 Actual Procedures p Colonoscopy Polypectomy - Felice Em MD Providers: Felice Em MD Referring MD: Mei MENDOSA Indications: Rectal bleeding Medicines: See the Anesthesia note for documentation of the administered medications Complications: No immediate complications. Estimated Blood Loss: Estimated blood loss: none. Procedure: Pre-Anesthesia Assessment: - ASA Grade Assessment: II - A patient with mild systemic disease. After I obtained informed consent, the scope was passed under direct vision. Throughout the procedure, the patient's blood pressure, pulse, and oxygen saturations were monitored continuously. The scope was introduced through the anus and advanced to the terminal ileum. The colonoscopy was performed without difficulty. The patient tolerated the procedure well. The quality of the bowel preparation was good. Findings: The perianal and digital rectal examinations were normal. There was evidence of severe proctitis. There was marked granularity of the distal 5 cm of the colonic mucosa. There was a 7 mm polyp in the rectum. This was removed by saline lift and hot snare. There was a 2 mm polyp in the sigmoid colon removed by cold snare. A few sigmoid diverticula were seen. There was patchy erythema in the cecum around the appendix, consistent with a appendiceal patch. The remainder of the colon was normal. The ileum was deeply intubated. There were three aphthous ulcers in the ileum. Biopsies taken from throughout the colon and from the ileum Impression: Exam suggestive of IBD. Rectal polyp, sigmoid polyp. Recommendation: - Discharge patient to Floor. Begin topical 5 ASA therapy.. s EGD Biopsy Cytology - Felice Em MD Referring MD: Mei MENDOSA Indications: Nausea Medicines: See the Anesthesia note for documentation of the administered medications Complications: No immediate complications. Estimated Blood Loss: Estimated blood loss: none. Procedure: Pre-Anesthesia Assessment: - ASA Grade Assessment: II - A patient with mild systemic disease. After obtaining informed consent, the endoscope was passed under direct vision. Throughout the procedure, the patient's blood pressure, pulse, and oxygen saturations were monitored continuously. The Scope was introduced through the mouth, and advanced to the second part of duodenum. The upper GI endoscopy was accomplished without difficulty. The patient tolerated the procedure well. Findings: The esophagus was normal. The entire examined stomach was normal. Biopsies were taken with a cold forceps for histology. There was moderate patchy erythema in the duodenal bulb. Biopsies taken with a cold forceps for histology. The duodenum was otherwise normal. Impression: Duodenitis. Recommendation: - Discharge patient to floor. Twice daily PPI. Ordered Studies 08/17/20 12:53 CT abd pelvis IV con only Stat COMPARISON STUDY: No priors. TECHNIQUE: Following the IV administration of 94 cc of Optiray 320, CT scan of the abdomen and pelvis is performed from the lung bases to the proximal femora. Images are reviewed in the axial, sagittal, and coronal planes. IV contrast was administered without complication. A dose lowering technique was utilized adhering to the principles of ALARA. The examination is modestly degraded by motion artifact. CT DOSE: 1031.97 mGycm FINDINGS: Lung bases: The heart is normal in size and without pericardial effusion. The lung bases are clear. There is a small hiatal hernia. Fluid fills the distal esophagus which appears thick walled. Liver: The contrast-enhanced liver is normal in size, contour, and attenuation. There is no intrahepatic biliary ductal dilatation. The hepatic veins and portal veins are patent. Gallbladder: Unremarkable. Spleen: Normal in size and attenuation. A 10 mm splenic hypodensity seen on image #50 is statistically of doubtful significance. Pancreas: Unremarkable. Adrenal glands: Unremarkable. Kidneys: The contrast enhanced kidneys are normal in size and without hydronephrosis. The kidneys enhance symmetrically. Scattered subcentimeter cortical hypodensities likely represent cysts but are too small for definitive characterization. Abdominal vasculature: The abdominal aorta is normal in course and caliber. Bowel: There is no bowel obstruction. There is wall thickening and mild mucosal hyperemia involving the distal duodenum and the jejunum. There is minimal surrounding infiltration. No pneumatosis intestinalis or portal venous gas is seen. There is no interval fluid. Fecal retention is seen throughout the colon. The appendix is well-visualized and normal. Peritoneum: There is no intraperitoneal free air or abdominal ascites. There is a fat-containing umbilical hernia. Lymphadenopathy: None. Pelvic viscera: The bladder, prostate, and seminal vesicles are normal as imaged. There is a small fat-containing right inguinal hernia. Skeletal structures: No lytic or blastic lesions are seen. Degenerative change and sclerosis is noted in the sacroiliac joints. IMPRESSION: 1. There is mild wall thickening with mucosal hyperemia and minimal surrounding infiltration involving the distal duodenum and the jejunum. The appearance is consistent with a nonspecific duodenitis/jejunitis. 2. There is no pneumatosis intestinalis, portal venous gas, intraperitoneal free air, or abdominal ascites. 3. The distal esophagus is mildly distended and fluid-filled. There is mild esophageal wall thickening. Correlate clinically for evidence of esophagitis. 4. There is no bowel obstruction. 5. Additional findings as above. Diabetes Follow up Diabetes Follow-up Needed for HgbA1c >9% Hospital Course (1) Vomiting: (2) Rectal bleeding: per INGRID Levy S: Pt is 39 y/o M with PMH DM, HTN presented to ER with c/o bright red rectal bleeding with BMs x 3 months. Past week c/o nausea and vomiting with eating. In ER afebrile, vitals stable No leukocytosis, H/H: 15/43, BUN: 11, Cr: 1.0 CT ABD/PELVIS:There is mild wall thickening with mucosal hyperemia and minimal surrounding infiltration involving the distal duodenum and the jejunum. The appearance is consistent with a nonspecific duodenitis/jejunitis. no pneumatosis intestinalis, portal venous gas, intraperitoneal free air, or abdominal ascites. The distal esophagus is mildly distended and fluid-filled. There is mild esophageal wall thickening. There is no bowel obstruction. In ER given 1L NSS, GI cocktail, Zofran, Protonix and reports improvement Hg stable overall , remained 13-14 GI consulted Status post EGD: Duodenitis Status post colonoscopy: Severe proctitis-possible IBD, polyps pathology reports from above procedures pending continue Protonix p.o. BID continue Rowasa Per rectum daily patient needs to establish with a courseware developer and follow up in 1-2 weeks soft diet Atypical Chest Pain Troponin levels x 3 negative Echo: LV systolic function normal, no regional wall abnormalities noted, EF 60- 65%, no significant valvular pathology Hot Room Attendant consulted, no further cardiac testing (3) Diabetes mellitus, type II: A1c 9.1 resume usual regimen close outpatient ff up and management (4) HTN (hypertension): resume Lisinopril DVT Prophylaxis SCDs only in light of hematochezia return to [facility] upon discharge patient needs to establish with a [employer] as outpatient and follow up in 1-2 weeks Total Time Total Time Spent Total Time Spent (In Minutes): 50 minutes Discharge Plan Discharge Items Patient Disposition: [facility] Reason For Visit: HEMATOSCHEZIA, N/V Discharge Diagnosis: DUODENITIS SEVERE PROCTITIS, POSSIBLE INFLAMMATORY BOWEL DISEASE Activity: Resume your previous activity Non-emergency contact: Primary Care Provider and [employer] Call non-emergency contact if: you have any medication questions, your symptoms worsen, your pain is not controlled, your pain is worsening, your pain is unusual for you, your pain is concerning for you and you have a fever Follow-up/Referrals: Mei MENDOSA [Primary Care Provider] - Diet: Carb Consistent or DM2, Heart Healthy and Low Fiber Addtl Attending Provider Instructions: BIOPSY FROM EGD AND COLONOSCOPY. PATIENT NEEDS TO ESTABLISH WITH A BEEF TRIMMER AND FOLLOW UP IN 1-2 WEEKS. NEW MEDICATIONS: PROTONIX ROWASA (PER RECTUM) Pending Studies at Discharge: Yes Studies:: BIOPSY FROM EGD AND COLONOSCOPY PERFORMED 08/20/20 Stand-Alone Forms: My [facility] Skilled Items Patient informed of condition?: Yes Discharge Level of Care: Other Communicable Disease: No Discharge Prognosis: Stable Lines: None Urinary Catheter: No Medications and DC Order Prescriptions: New mesalamine 4 gram/60 mL Enema 4 g ND DAILY 30 Days Qty: 1800 RF: 1 pantoprazole 40 mg Tablet,Delayed Release (Dr/Ec) 40 mg PO BID 30 Days Qty: 60 RF: 1 Continued Lantus U-100 Insulin 100 unit/mL Solution 23 unit SUBCUT DAILY RF: 0 metformin 1,000 mg Tablet 1,000 mg PO BID RF: 0 Novolin R Regular U-100 Insuln 100 unit/mL Solution 0 unit SUBCUT UD RF: 0 lisinopril 2.5 mg Tablet 2.5 mg PO DAILY RF: 0 Discontinued omeprazole 20 mg Capsule,Delayed Release(Dr/Ec) 20 mg PO DAILY RF: 0 Discharge Orders: Discharge Order (Routine); Ordered 08/21/20 Ordered By: Deep Caldera Admission Data Admit Date/Time: 08/17/20 17:26 Attending Provider: Deep Caldera Admit Provider: Deep Caldera Primary Care Provider: Mei MENDOSA Other Providers: Deep Caldera ; Angus Mims ; Pavan Dougherty Other Interventions: Discharge Summary Assessment (RN) Last Done: 08/21/20 11:01
== END 2020-08-21 15:50 | DRG 392 ==
LOC: ED 12:28 → 2W 17:26